=== PATIENT | male | born 1990 | race Hispanic/Latino ===

== ENCOUNTER 2018-08-13 15:54 | Emergency (ER) | payer SELFPAY ==
[2018-08-13] MEDS ORDERED: MORPHINE 4 MG/ML SYR ONE (16:51)
[2018-08-13] MEDS ORDERED: NA CHLORIDE 0.9% 1,000 ML ONE (16:51)
[2018-08-13] MEDS ORDERED: ONDANSETRON 4 MG/2 ML VIAL ONE (16:51)
[2018-08-13 17:01] LABS: Absolute Lymphocytes (CBC) 2.2 K/uL (0.7-4.9); Absolute Neutrophil 7.7 K/uL (1.8-8.0); Basophils % 0.3 % (0-1.3); Hematocrit 43.7 % (39.6-49.0); Lymphocytes % 20.3 % (15.3-44.8); MPV 9.3 fL (7.6-11.3); Monocytes % 9.2 % (3.3-12.3)
[2018-08-13 17:12] LABS: Protime INR 1.03
--- NOTE | 2018-08-13 17:29 | RAD REPORT ---
EXAM DESCRIPTION: CT - Head C Spine Cap Adolph Machado - 08/13/2018 5:11 pm CLINICAL HISTORY: Fall from ladder second story of the home, head, neck, chest and abdomen pain COMPARISON: None. TECHNIQUE: Axial [address] head images were obtained. Axial [address] cervical spine images were obtaine d with sagittal and coronal reconstruction images reviewed. During dynamic enhancement of 100mL non-i onic contrast, axial 5 mm images of the chest, abdomen and pelvis were obtained. All CT scans are performed using dose optimization technique as appropriate and may include automated exposure control or mA/KV adjustment according to patient size. FINDINGS: No epidural, subdural or subarachnoid hemorrhage identified. There are few punctate hyperd ensities believed to be within range of normal. Cortical contusion and shear injury are not suspected . No mass effect or edema. No sulcal effacement. No midline shift or abnormal fluid collection. Mas toid air cells and paranasal sinuses are clear. No skull fracture. No measurable scalp hematoma. CT cervical spine imaging shows normal height. Normal alignment of the vertebrae. No disc space narro wing. No paraspinal mass or hematoma seen. Central canal detail is inherently limited. Concerns for t raumatic disc herniation or traumatic cord injury can be further addressed with MR imaging. CT chest shows no pneumothorax, pulmonary contusion or pleural fluid collection. No mediastinal hemat анна and the aorta and pulmonary arteries are unremarkable. No chest will mass or abnormal axillary fi nding. No displaced rib fracture or other significant bony finding. No dislocation of either franklin l head. Superior aspect of each scapula and lateral aspect of each clavicle. CT abdomen and pelvis show no injury to solid abdominal viscera. Gallbladder and biliary tree are unr emarkable. No bowel injury or significant finding. No free air, free fluid or abnormal stranding. No urinary bladder abnormality. No compression fracture or acute bone finding identifiable. No muscle or subcutaneous fatty tissue ma ss or hematoma. No foreign body. IMPRESSION: No hemorrhage, edema or acute CT Head finding. No significant CT Cervical Spine finding. No significant CT Chest finding. No significant CT Abdomen and Pelvis finding.
[2018-08-13] MEDS ORDERED: KETOROLAC 30 MG/ML INJ ONE (17:58)
[2018-08-13 18:18] LABS: BUN Blood Urea Nitrogen 16 mg/dL (7-18); Bicarbonate 26 mmol/L (21-32); Glucose Level 107 mg/dL (74-106); Potassium 3.4 mmol/L (3.5-5.1); Sodium Level 140 mmol/L (136-145)
[2018-08-13 18:26] LABS: Urine Blood NEGATIVE (NEG); Urine Glucose NEGATIVE (NEG); Urine Protein NEGATIVE (NEG); Urine Specific Gravity 1.015 (1.005-1.030); Urine pH 6.5 (5.0-7.0)
--- NOTE | 2018-08-13 18:43 | ER ---
Nurse's Notes [facility] Name: Derrick Brody Age: 27 yrs Sex: Male : 1990 Arrival Date: 08/13/2018 Time: 15:57 Bed 8 Private MD: None, None Diagnosis: Fall on and from ladder;Pain in right shoulder-from fall;Pain in right elbow-from fall Presentation: 08/13 16:14 Presenting complaint: Patient states: I was coming off of the roof of a two story house la1 on to a ladder and the ladder slipped and I fell to the ground and landed on it. Pt reports upper and lower back pain, right arm pain, denies LOC. Transition of care: patient was not received from another setting of care. Onset of symptoms was August 13, 2018. Risk Assessment: Do you want to hurt yourself or someone else? Patient reports no desire to harm self or others. Initial Sepsis Screen: Does the patient meet any 2 criteria? No. Patient's initial sepsis screen is negative. Does the patient have a suspected source of infection? No. Patient's initial sepsis screen is negative. Care prior to arrival: None. 16:14 Method Of Arrival: Ambulatory la1 16:14 Acuity: TEDDY 2 la1 16:20 Mechanism of Injury: Fall from ladder. Trauma event details: Injury occurred in the [address], Injury occurred: work Injury occurred: August 13, 2018. Trauma Activation: Alert Physician: ED Physician; Name: ; Notified At: ; Arrived At: Physician: General Surgeon; Name: ; Notified At: ; Arrived At: Physician: Radiology; Name: ; Notified At: ; Arrived At: Physician: Respiratory; Name: ; Notified At: ; Arrived At: Physician: Lab; Name: ; Notified At: ; Arrived At: Historical: - Allergies: 16:16 No Known Allergies; la1 - Home Meds: 16:16 None [Active]; la1 - PMHx: 16:16 None; la1 - PSHx: 16:16 None; la1 - Immunization history:: Adult Immunizations up to date. - Social history:: Smoking status: Patient uses tobacco products, smokes one-half pack cigarettes per day. - Immunization history: Last tetanus immunization:. - Ebola Screening: : No symptoms or risks identified at this time. Screenin:00 Abuse screen: Denies threats or abuse. Nutritional screening: No deficits noted. ca1 Tuberculosis screening: No symptoms or risk factors identified. Fall Risk None identified. Primary Survey: 16:20 NO uncontrolled hemorrhage observed. A: The patient is alert. Airway: patent, No aa5 supplemental oxygen in use on arrival. Breathing/Chest: Respiratory pattern: regular, Respiratory effort: unlabored, Breath sounds: clear, bilaterally. Circulation: Skin color: pink. Disability Alert. Exposure/Environment: All clothing and personal items were removed. There is no evidence of uncontrolled external bleeding. A warming method has been applied: A warm blanket has been provided to the patient. 16:33 Reassessment Airway Airway Patent Breathing/Chest Respiratory pattern Regular aa5 Respiratory effort Spontaneous Unlabored Breath sounds Clear Chest inspection Symmetrical Circulation Color Chestnut Disability Alert. Assessment: 16:20 General: Appears uncomfortable, Behavior is calm, cooperative. Pain: Complains of pain aa5 in posterior chest, low back, right shoulder, and right elbow Pain currently is 10 out of 10 on a pain scale. Quality of pain is described as aching, sharp, Is continuous, Aggravated by repositioning, Noted to be resistant to movement. Neuro: Level of Consciousness is awake, alert, obeys commands, Oriented to person, place, time, situation, Pocket Operator are equal bilaterally Moves all extremities. Speech is normal, Facial symmetry appears normal, Pupils are PERRLA. EENT: No signs and/or symptoms were reported regarding the EENT system. Cardiovascular: Heart tones S1 S2 present Rhythm is regular. Respiratory: Airway is patent Respiratory effort is even, unlabored, Respiratory pattern is regular, symmetrical, Breath sounds are clear bilaterally. GI: Abdomen is round non-distended, Bowel sounds present X 4 quads. Abd is soft and non tender X 4 quads. Patient currently denies nausea, vomiting. : No signs and/or symptoms were reported regarding the genitourinary system. Derm: Skin is pink, warm \T\ dry. Musculoskeletal: Reports pain in right shoulder, right elbow, and back. 17:15 Reassessment: Patient appears in no apparent distress at this time. Patient and/or ca1 family updated on plan of care and expected duration. Pain level reassessed. Patient is alert, oriented x 3, equal unlabored respirations, skin warm/dry/pink. 17:59 Reassessment: X-ray at bedside. ca1 18:40 Reassessment: Sling applied to R arm. ca1 18:55 Reassessment: Patient appears in no apparent distress at this time. Patient is alert, ca1 oriented x 3, equal unlabored respirations, skin warm/dry/pink. Vital Signs: 16:16 BP 145 / 87; Pulse 84; Resp 16; Temp 97.8; Pulse Ox 98% on R/A; Weight 108.86 kg; la1 Height 6 ft. 2 in. (187.96 cm); 17:35 BP 146 / 97; Pulse 74; Resp 19; Pulse Ox 100% on R/A; ca1 18:55 BP 135 / 91; Pulse 87; Resp 17; Pulse Ox 100% on R/A; ca1 16:16 Body Mass Index 30.81 (108.86 kg, 187.96 cm) la1 Crystal Coma Score: 16:20 Eye Response: spontaneous(4). Verbal Response: oriented(5). Motor Response: obeys aa5 commands(6). Total: 15. 17:35 Eye Response: spontaneous(4). Verbal Response: oriented(5). Motor Response: obeys ca1 commands(6). Total: 15. 18:55 Eye Response: spontaneous(4). Verbal Response: oriented(5). Motor Response: obeys ca1 commands(6). Total: 15. Trauma Score (Adult): 16:20 Eye Response: spontaneous(1); Verbal Response: oriented(1); Motor Response: obeys aa5 commands(2); Systolic BP: > 89 mm Hg(4); Respiratory Rate: 10 to 29 per min(4); Crystal Score: 15; Trauma Score: 12 ED Course: 15:57 Patient arrived in ED. mr 15:57 None, None is Private Physician. mr 16:15 Triage completed. la1 16:16 Arm band placed on right wrist. la1 16:20 Juan Manuel Saucedo PA is PHCP. cp 16:20 Jaron Mosley MD is Attending Physician. cp 16:20 Patient has correct armband on for positive identification. Placed in gown. Bed in low aa5 position. Call light in reach. Side rails up X2. 16:20 Thermoregulation: warm blanket given to patient. aa5 16:32 Alisia Brooks, RN is Primary Nurse. aa5 16:35 Patient maintains SpO2 saturation greater than 95% on room air. aa5 16:35 Inserted saline lock: 20 gauge in left antecubital area, using aseptic technique. Blood aa5 collected. IV inserted by Jailene Bonilla RN. 17:11 CT Traumagram (Head C Spine CAP W Con) In Process Unspecified. EDMS 18:05 X-ray completed. Portable x-ray completed in exam room. Patient tolerated procedure la2 well. 18:07 XRAY Shoulder RIGHT 2 view In Process Unspecified. EDMS 18:07 XRAY Elbow RIGHT 3 view In Process Unspecified. EDMS 18:41 Abelino Raymundo MD is Referral Physician. cp 19:00 No provider procedures requiring assistance completed. IV discontinued, intact, ca1 bleeding controlled, No redness/swelling at site. Pressure dressing applied. Administered Medications: 16:40 Drug: NS 0.9% 1000 ml Route: IV; Rate: 1 bolus; Site: left antecubital; aa5 18:00 Follow up: IV Status: Completed infusion ca1 17:03 Not Given (Patient Refused): morphine 4 mg IVP once aa5 17:03 Not Given (Patient Refused): Zofran 4 mg IVP once; over 2 minutes aa5 17:51 Drug: TORadol 30 mg Route: IVP; Site: left antecubital; la1 18:41 Follow up: Response: No adverse reaction; Pain is decreased ca1 18:40 Drug: Potassium Effervescent Tablet 25 mEq Route: PO; ca1 18:50 Follow up: Response: Medication administered at discharge. ca1 Output: 18:30 Urine: 400ml (Voided); Total: 400ml. ca1 Outcome: 18:42 Discharge ordered by . cp 19:00 Discharged to home ambulatory, with family. ca1 19:00 Condition: stable 19:00 Discharge instructions given to patient, family, Instructed on discharge instructions, follow up and referral plans. medication usage, Demonstrated understanding of instructions, follow-up care, medications, Prescriptions given X 1. 19:00 Patient's length of stay in the Emergency Department was greater than 2 hours. waiting ca1 on xray results.Patient's length of stay extended due to 19:09 Patient left the ED. ca1 Signatures: Dispatcher [employer] Sadie Dominguez Audri, RN RN aa5 Galileo Mcdaniels RN RN la1 Juan Manuel Saucedo PA PA cp Ardoin, Leslie la2 Jailene Bonilla RN RN ca1 Corrections: (The following items were deleted from the chart) 17:04 16:40 NS 0.9% 1000 ml IV at 1 bolus in right antecubital aa5 aa5
--- NOTE | 2018-08-13 18:44 | EDPHYS ---
Physician Documentation [facility] Name: Derrick Brody Age: 27 yrs Sex: Male : 1990 Arrival Date: 08/13/2018 Time: 15:57 Bed 8 Private MD: None, None ED Physician Jaron Mosley HPI: 08/13 16:40 This 27 yrs old Male presents to ER via Ambulatory with complaints of Fall cp Injury. 16:40 Details of fall: The patient fell from a height, from a ladder, approximately 10 feet, cp and struck a concrete surface. Onset: The symptoms/episode began/occurred 2 hour(s) ago. Associated injuries: The patient sustained right shoulder and right elbow, painful injury. Severity of symptoms: in the emergency department the symptoms are unchanged, despite home interventions. Historical: - Allergies: 16:16 No Known Allergies; la1 - Home Meds: 16:16 None [Active]; la1 - PMHx: 16:16 None; la1 - PSHx: 16:16 None; la1 - Immunization history:: Adult Immunizations up to date. - Social history:: Smoking status: Patient uses tobacco products, smokes one-half pack cigarettes per day. - Immunization history: Last tetanus immunization:. - Ebola Screening: : No symptoms or risks identified at this time. ROS: 16:55 Constitutional: Negative for body aches, chills, fever, poor PO intake. cp 16:55 Eyes: Negative for injury, pain, redness, and discharge. cp 16:55 ENT: Negative for drainage from ear(s), ear pain, sore throat, difficulty swallowing, difficulty handling secretions. 16:55 Cardiovascular: Negative for chest pain, edema, palpitations. 16:55 Respiratory: Negative for cough, shortness of breath, wheezing. 16:55 Abdomen/GI: Negative for abdominal pain, nausea, vomiting, and diarrhea, anorexia, black/tarry stool, rectal bleeding. 16:55 Back: Positive for pain at rest, pain with movement, of the low back area and mid back area. 16:55 : Negative for urinary symptoms, hematuria. 16:55 MS/extremity: Positive for pain, tenderness, of the right shoulder and right elbow, Negative for deformity, paresthesias. 16:55 Skin: Negative for cellulitis, rash. 16:55 Neuro: Negative for altered mental status, seizure activity, weakness. 16:55 All other systems are negative. Exam: 17:00 Constitutional: The patient appears in no acute distress, alert, awake, cp non-diaphoretic, non-toxic, well developed, well nourished, uncomfortable. 17:00 Head/Face: Normocephalic, atraumatic. cp 17:00 Eyes: Periorbital structures: appear normal, Pupils: equal, round, and reactive to light and accomodation, Extraocular movements: intact throughout, Conjunctiva: normal, no exudate, no injection, Sclera: no appreciated abnormality, Lids and lashes: appear normal, bilaterally. 17:00 ENT: External ear(s): are unremarkable, Ear canal(s): are normal, clear, TM's: bulging, is not appreciated, bilaterally, dullness, bilaterally, erythema, is not appreciated, bilaterally, Nose: is normal, Mouth: Lips: moist, Oral mucosa: pink and intact, moist, Posterior pharynx: is normal, airway is patent, no erythema, no exudate, Voice: is normal. 17:00 Neck: C-spine: C-collar placed in ED, vertebral tenderness, that is mild, crepitus, is not appreciated. 17:00 Chest/axilla: Inspection: normal, Palpation: is normal, no crepitus, no tenderness. 17:00 Cardiovascular: Rate: normal, Rhythm: regular, Heart sounds: murmur, not appreciated, rub, not appreciated, gallop, not appreciated, Edema: is not appreciated, JVD: is not appreciated. 17:00 Respiratory: the patient does not display signs of respiratory distress, Respirations: normal, no use of accessory muscles, no retractions, no splinting, no tachypnea, labored breathing, is not present, Breath sounds: are clear throughout, no decreased breath sounds, no stridor, no wheezing. 17:00 Abdomen/GI: Inspection: abdomen appears normal, Bowel sounds: active, all quadrants, Palpation: soft, in all quadrants, mild abdominal tenderness, in the right upper quadrant and left upper quadrant, rebound tenderness, is not appreciated, voluntary guarding, is not appreciated, involuntary guarding, is not appreciated. 17:00 Back: pain, that is moderate, of the low back area and mid back area, ROM is painful, Straight leg raises: of both lower extremities does not illicit pain. 17:00 Musculoskeletal/extremity: Extremities: grossly normal except: noted in the right shoulder and right elbow: pain, tenderness, There is no evidence of decreased ROM, ROM: limited passive range of motion due to pain, in the right shoulder and right elbow, Perfusion: the extremity is normally perfused throughout, Sensation intact. 17:00 Skin: cellulitis, is not appreciated, no rash present. 17:00 Neuro: Orientation: to person, place \T\ time. Mentation: is normal, Cerebellar function: is grossly normal, Motor: moves all fours, strength is normal, Sensation: is normal. Vital Signs: 16:16 BP 145 / 87; Pulse 84; Resp 16; Temp 97.8; Pulse Ox 98% on R/A; Weight 108.86 kg; la1 Height 6 ft. 2 in. (187.96 cm); 17:35 BP 146 / 97; Pulse 74; Resp 19; Pulse Ox 100% on R/A; ca1 18:55 BP 135 / 91; Pulse 87; Resp 17; Pulse Ox 100% on R/A; ca1 16:16 Body Mass Index 30.81 (108.86 kg, 187.96 cm) la1 [place] Coma Score: 16:20 Eye Response: spontaneous(4). Verbal Response: oriented(5). Motor Response: obeys aa5 commands(6). Total: 15. 17:35 Eye Response: spontaneous(4). Verbal Response: oriented(5). Motor Response: obeys ca1 commands(6). Total: 15. 18:55 Eye Response: spontaneous(4). Verbal Response: oriented(5). Motor Response: obeys ca1 commands(6). Total: 15. Trauma Score (Adult): 16:20 Eye Response: spontaneous(1); Verbal Response: oriented(1); Motor Response: obeys aa5 commands(2); Systolic BP: > 89 mm Hg(4); Respiratory Rate: 10 to 29 per min(4); Crystal Score: 15; Trauma Score: 12 MDM: 16:20 Patient medically screened. 18:41 Data reviewed: vital signs, nurses notes, lab test result(s), radiologic studies, CT cp scan, plain films. 18:41 Test interpretation: by ED physician or midlevel provider: plain radiologic studies. cp Counseling: I had a detailed discussion with the patient and/or guardian regarding: the historical points, exam findings, and any diagnostic results supporting the discharge/admit diagnosis, lab results, radiology results, to return to the emergency department if symptoms worsen or persist or if there are any questions or concerns that arise at home. Response to treatment: the patient's symptoms have markedly improved after treatment, and as a result, I will discharge patient. ED course: VSS. Radiology studies negative for acute fracture. Will discharge to home for continued monitoring. 08/13 16:34 Order name: Basic Metabolic Panel; Complete Time: 18:36 cp 08/13 18:36 Interpretation: Normal except: K 3.4; GLUC 107; CA 8.4. cp 08/13 16:34 Order name: CBC with Diff; Complete Time: 17:45 cp 08/13 16:34 Order name: Creatinine for Radiology; Complete Time: 18:36 cp 08/13 16:34 Order name: Type And Screen; Complete Time: 18:36 cp 08/13 16:34 Order name: PT-INR; Complete Time: 17:45 cp 08/13 18:19 Order name: Urine Dipstick--Ancillary (enter results); Complete Time: 18:36 eb 08/13 16:34 Order name: CT Traumagram (Head C Spine CAP W Con); Complete Time: 17:45 cp 08/13 17:47 Order name: XRAY Shoulder RIGHT 2 view cp 08/13 17:47 Order name: XRAY Elbow RIGHT 3 view cp 08/13 16:34 Order name: Labs collected and sent; Complete Time: 16:42 cp 08/13 18:44 Order name: Sling; Complete Time: 19:02 cp Administered Medications: 16:40 Drug: NS 0.9% 1000 ml Route: IV; Rate: 1 bolus; Site: left antecubital; aa5 18:00 Follow up: IV Status: Completed infusion ca1 17:03 Not Given (Patient Refused): morphine 4 mg IVP once aa5 17:03 Not Given (Patient Refused): Zofran 4 mg IVP once; over 2 minutes aa5 17:51 Drug: TORadol 30 mg Route: IVP; Site: left antecubital; la1 18:41 Follow up: Response: No adverse reaction; Pain is decreased ca1 18:40 Drug: Potassium Effervescent Tablet 25 mEq Route: PO; ca1 18:50 Follow up: Response: Medication administered at discharge. ca1 Disposition: 08/13/18 18:42 Discharged to Home. Impression: Fall on and from ladder, Pain in right shoulder - from fall, Pain in right elbow - from fall. - Condition is Stable. - Discharge Instructions: Shoulder Pain, Elbow Contusion, Shoulder Range of Motion Exercises. - Prescriptions for Naprosyn 500 mg Oral Tablet - take 1 tablet by ORAL route 2 times per day take with food; 20 tablet. - Medication Reconciliation Form, Thank You Letter, Antibiotic Education, Prescription Opioid Use form. - Follow up: Abelino Raymundo MD; When: 2 - 3 days; Reason: right shoulder and right elbow pain continues. - Problem is new. - Symptoms have improved. Addendum: 08/16/2018 20:35 Co-signature as Attending Physician, Jaron Mosley MD Available for consultation at p s1 all times . Signatures: Dispatcher [employer] EDMS Alisia Brooks RN RN aa5 Galileo Mcdaniels RN RN la1 Juan Manuel Saucedo PA PA cp Jaron Mosley MD MD ps1 Jailene Bonilla RN RN ca1 Corrections: (The following items were deleted from the chart) 08/13 18:36 18:36 Normal except: K 3.4; GLUC 107. cp cp 19:09 18:42 08/13/2018 18:42 Discharged to Home. Impression: Fall on and from ladder; Pain in ca1 right shoulder - from fall; Pain in right elbow - from fall. Condition is Stable. Forms are Medication Reconciliation Form, Thank You Letter, Antibiotic Education, Prescription Opioid Use. Follow up: Abelino Raymundo; When: 2 - 3 days; Reason: right shoulder and right elbow pain continues. Problem is new. Symptoms have improved. cp
[2018-08-13] MEDS ORDERED: POTASSIUM 25 MEQ EFFERV TAB ONE (18:49)
--- NOTE | 2018-08-13 19:13 | RAD REPORT ---
EXAM DESCRIPTION: Shoulder Right 2 View - 08/13/2018 6:09 pm CLINICAL HISTORY: Fall, right shoulder trauma, shoulder pain COMPARISON: None. TECHNIQUE: Internal and external rotation views of the right shoulder were obtained. FINDINGS: There is no fracture or dislocation. AC joint is normal in appearance. Acromial humeral j oint space is normal. No scapula abnormality seen. Calcification or other suspicious soft tissue find ing. IMPRESSION: Negative two-view right shoulder examination.
--- NOTE | 2018-08-13 19:13 | RAD REPORT ---
EXAM DESCRIPTION: RAD - Elbow Right 3 View - 08/13/2018 6:08 pm CLINICAL HISTORY: Fall, trauma to elbow, elbow pain COMPARISON: None. FINDINGS: No fracture is identified and no elevated posterior fat pad. There is no dislocation or pe riosteal reaction noted. No foreign body seen. Minimal posterior contusion. No other significant find ing. IMPRESSION: Negative right elbow examination.
== END 2018-08-13 19:09 | disposition home or self-care (01) ==
LOC: ER 15:54
DX: M25.521 Pain in right elbow (principal); W11.XXXA Fall on and from ladder, initial encounter; Y93.9 Activity, unspecified; Y92.9 Unspecified place or not applicable; F17.210 Nicotine dependence, cigarettes, uncomplicated
CPT/HCPCS: 36415; 70450; 71260; 72125; 74177; 80048; 81003; 85025; 85610; 86850; 86900; 86901; 96361; 96374; 99284; J2405; J7030; Q9967

== ENCOUNTER 2019-02-03 22:13 | Emergency (ER) | payer SELFPAY ==
[2019-02-03] MEDS ORDERED: LIDOCAINE 1% MPF 5 ML VIAL ONE (22:59)
[2019-02-03] MEDS ORDERED: BUPIVACAINE 0.5% PF 10 ML VIAL ONE (22:59)
[2019-02-03] MEDS ORDERED: TETANUS & DIPHTHERIA TOX,ADULT 0.5 ML VIAL ONE (23:01)
--- NOTE | 2019-02-04 00:37 | ER ---
Nurse's Notes [facility] Name: Derrick Brody Age: 28 yrs Sex: Male : 1990 Arrival Date: 02/03/2019 Time: 22:18 Bed 19 Private MD: Diagnosis: Ingrowing nail Presentation: 02/03 22:22 Presenting complaint: Patient states: "I have a severely ingrown toe nail, I've tried aj1 to dig it out and its getting worse and its getting infected". Transition of care: patient was not received from another setting of care. Onset of symptoms was January 27, 2019. Risk Assessment: Do you want to hurt yourself or someone else? Patient reports no desire to harm self or others. Initial Sepsis Screen: Does the patient meet any 2 criteria? No. Patient's initial sepsis screen is negative. Does the patient have a suspected source of infection? No. Patient's initial sepsis screen is negative. Care prior to arrival: None. 22:22 Method Of Arrival: Ambulatory aj 22:22 Acuity: TEDDY 4 aj1 Triage Assessment: 22:23 General: Appears in no apparent distress. comfortable, Behavior is calm, cooperative, aj1 appropriate for age. Pain: Complains of pain in left foot Pain currently is 7 out of 10 on a pain scale. Neuro: Level of Consciousness is awake, alert, obeys commands, Oriented to person, place, time, situation. Cardiovascular: Patient's skin is warm and dry. Respiratory: Airway is patent Respiratory effort is even, unlabored, Respiratory pattern is regular, symmetrical. Historical: - Allergies: 22:23 No Known Allergies; aj1 - Home Meds: 22:23 None [Active]; aj1 - PMHx: 22:23 None; aj1 - Immunization history:: Flu vaccine is not up to date. - Social history:: Smoking status: Patient uses tobacco products, denies chronic smoking, but will smoke occasionally. - Ebola Screening: : Patient denies travel to an Ebola-affected area in the 21 days before illness onset. Screenin:31 Abuse screen: Denies threats or abuse. Nutritional screening: No deficits noted. bb Tuberculosis screening: No symptoms or risk factors identified. Fall Risk None identified. Assessment: 22:31 General: Appears in no apparent distress. uncomfortable, Behavior is calm, cooperative, bb Reports he has painful left big toe he has been trying to dig out his ingrown toenail for several days but it is getting worse. Pain: Complains of pain in Left first toenail. Neuro: Level of Consciousness is awake, alert, obeys commands, Oriented to person, place, time, situation. Cardiovascular: No deficits noted. Capillary refill < 3 seconds Patient's skin is warm and dry. Respiratory: Respiratory effort is even, unlabored, Respiratory pattern is regular. GI: No signs and/or symptoms were reported involving the gastrointestinal system. Derm: Skin is pink, warm \\T\\ dry. Musculoskeletal: Circulation, motion, and sensation intact. left big toenail is bloody looking Reports pain in left first toe and Left first toenail. 23:25 Reassessment: Patient appears in no apparent distress at this time. Patient is alert, rr5 oriented x 3, equal unlabored respirations, skin warm/dry/pink. 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 02/04 00:55 Reassessment: Patient appears in no apparent distress at this time. Patient is alert, rr5 oriented x 3, equal unlabored respirations, skin warm/dry/pink. discharge instruction given and explained without complaint made. Patient denies pain at this time. Patient states feeling better. Patient states symptoms have improved. Vital Signs: 02/03 22:23 BP 133 / 95; Pulse 73; Resp 18; Temp 98.1; Pulse Ox 99% on R/A; Height 6 ft. 2 in. aj1 (187.96 cm) (R); 23:00 BP 139 / 79; Pulse 73; Resp 19; Pulse Ox 100% ; rr5 02/04 00:00 BP 129 / 65; Pulse 69; Resp 16; Pulse Ox 98% on R/A; rr5 00:54 BP 131 / 70; Pulse 70; Resp 17; Temp 98.0; Pulse Ox 99% ; rr5 ED Course: 02/03 22:18 Patient arrived in ED. mr 22:23 Triage completed. aj1 22:23 Arm band placed on Patient placed in an exam room. aj1 22:28 Ralph Hatch NP is PHCP. pm1 22:28 Andrew Lewis MD is Attending Physician. pm1 22:31 Patient has correct armband on for positive identification. Bed in low position. Call carlo light in reach. Side rails up X 1. Pulse ox on. NIBP on. 22:55 Osiel Page, GEOVANNA is Primary Nurse. rr5 02/04 00:15 nail removal left big toe done aseptically by ralph THURSTON. rr5 00:45 Ortho shoe applied to left foot. rr5 00:56 Patient did not have IV access during this emergency room visit. 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 Exp: bb 10/01/2020. Lot #: [id number]. } Route: IM; Site: right deltoid; 23:50 Follow up: Response: No adverse reaction rr5 02/04 00:10 Drug: Lidocaine (1 %) 5 ml {Note: given by ralph THURSTON.} Volume: 5 ml; Route: rr5 Infiltration; 00:54 Follow up: Response: No adverse reaction rr5 00:10 Drug: Marcaine (0.5 %) 10 ml {Note: given by ralph THURSTON.} Volume: 10 ml; Route: rr5 Infiltration; 00:54 Follow up: Response: No adverse reaction rr5 00:40 Drug: Ancef 1 grams Route: IM; Site: right gluteus; rr5 00:58 Follow up: Response: No adverse reaction rr5 00:41 Drug: Bactrim (160 mg-800 mg (DS) 1 tablet Route: PO; rr5 00:58 Follow up: Response: No adverse reaction rr5 Outcome: 00:29 Discharge ordered by MD. pm1 00:56 Discharged to home ambulatory. rr5 00:56 Condition: stable 00:56 Discharge instructions given to patient, Instructed on discharge instructions, follow up and referral plans. medication usage, Demonstrated understanding of instructions, follow-up care, medications, Prescriptions given X 3. 00:58 Patient left the ED. rr5 Signatures: Naty Cason RN RN Gillian JulienSadie Meaghan Lai RN RN bb Marinas, Patrick, NP REMITTANCE CLERK pm1 Osiel Page RN RN rr5
--- NOTE | 2019-02-04 00:38 | EDPHYS ---
Physician Documentation [facility] Name: Derrick Brody Age: 28 yrs Sex: Male : 1990 Arrival Date: 02/03/2019 Time: 22:18 Bed 19 Private MD: ED Physician Andrew Lewis HPI: 02/04 00:24 This 28 yrs old Male presents to ER via Ambulatory with complaints of Ingrown pm1 left great toe nail. 00:24 The patient presents with pain. The complaints affect the Left first toenail. Context: pm1 The problem was sustained at home, resulted from ingrown nail and then he attempted to remove it himself over the past week, the patient can fully bear weight, the patient is able to ambulate. Onset: The symptoms/episode began/occurred 1 week(s) ago. Associated signs and symptoms: Pertinent negatives: calf tenderness, fever, numbness, tingling. Severity of symptoms: in the emergency department the symptoms are actually worse. The patient has experienced similar episodes in the past, multiple times. The patient has not recently seen a physician. Historical: - Allergies: 02/03 22:23 No Known Allergies; aj1 - Home Meds: 22:23 None [Active]; aj1 - PMHx: 22:23 None; aj1 - Immunization history:: Flu vaccine is not up to date. - Social history:: Smoking status: Patient uses tobacco products, denies chronic smoking, but will smoke occasionally. - Ebola Screening: : Patient denies travel to an Ebola-affected area in the 21 days before illness onset. ROS: 02/04 00:24 MS/extremity: Positive for pain, of the left first toe. pm1 Constitutional: Negative for fever, chills, and weight loss, Cardiovascular: Negative for chest pain, palpitations, and edema, Respiratory: Negative for shortness of breath, cough, wheezing, and pleuritic chest pain, Abdomen/GI: Negative for abdominal pain, nausea, vomiting, diarrhea, and constipation, Back: Negative for injury and pain. Neuro: Negative for headache, weakness, numbness, tingling, and seizure. Skin: Positive for ingrown left great toe nail. Exam: 00:24 Constitutional: This is a well developed, well nourished patient who is awake, alert, pm1 and in no acute distress. Head/Face: Normocephalic, atraumatic. Chest/axilla: Normal chest wall appearance and motion. Nontender with no deformity. No lesions are appreciated. Cardiovascular: Regular rate and rhythm with a normal S1 and S2. No gallops, murmurs, or rubs. Normal PMI, no JVD. No pulse deficits. Respiratory: Lungs have equal breath sounds bilaterally, clear to auscultation and percussion. No rales, rhonchi or wheezes noted. No increased work of breathing, no retractions or nasal flaring. Back: No spinal tenderness. No costovertebral tenderness. Full range of motion. 00:24 Skin: Appearance: normal except for affected area, abscess, not appreciated, cellulitis, is not appreciated, irregular shaped central portion of left great toe present with surrounding granulated tissue. 00:24 Neuro: Orientation: is normal, Motor: is normal, moves all fours. Vital Signs: 02/03 22:23 BP 133 / 95; Pulse 73; Resp 18; Temp 98.1; Pulse Ox 99% on R/A; Height 6 ft. 2 in. aj1 (187.96 cm) (R); 23:00 BP 139 / 79; Pulse 73; Resp 19; Pulse Ox 100% ; rr5 02/04 00:00 BP 129 / 65; Pulse 69; Resp 16; Pulse Ox 98% on R/A; rr5 00:54 BP 131 / 70; Pulse 70; Resp 17; Temp 98.0; Pulse Ox 99% ; rr5 Procedures: 00:24 Performed Left great toe nail removal. Patient attempted to remove by himself at home pm1 and the only remaining nail was an irregularly shaped 2 cm by 0.5 cm nail in the central portion of nailbed. Digital block with lidocaine and Marcaine 5 mL. Patient tolerated procedure well. Cuticle explored and no nail tissue remaining. . MDM: 02/03 22:28 Patient medically screened. pm1 02/04 00:28 Data reviewed: vital signs. Data interpreted: Pulse oximetry: on room air is 99 %. pm1 Interpretation: normal. 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 Exp: bb 10/01/2020. Lot #: [id number]. } Route: IM; Site: right deltoid; 23:50 Follow up: Response: No adverse reaction rr5 02/04 00:10 Drug: Lidocaine (1 %) 5 ml {Note: given by ralph SOFTWARE TOOLS ENGINEER.} Volume: 5 ml; Route: rr5 Infiltration; 00:54 Follow up: Response: No adverse reaction rr5 00:10 Drug: Marcaine (0.5 %) 10 ml {Note: given by ralph SOFTWARE TOOLS ENGINEER.} Volume: 10 ml; Route: rr5 Infiltration; 00:54 Follow up: Response: No adverse reaction rr5 00:40 Drug: Ancef 1 grams Route: IM; Site: right gluteus; rr5 00:58 Follow up: Response: No adverse reaction rr5 00:41 Drug: Bactrim (160 mg-800 mg (DS) 1 tablet Route: PO; rr5 00:58 Follow up: Response: No adverse reaction rr5 Disposition: 03:32 Co-signature as Attending Physician, Andrew Lewis MD. rn Disposition: 02/04/19 00:29 Discharged to Home. Impression: Ingrowing nail. - Condition is Stable. - Discharge Instructions: Ingrown Toenail, Fingernail or Toenail Removal, Adult. - Prescriptions for Keflex 500 mg Oral Capsule - take 1 capsule by ORAL route every 6 hours for 10 days; 40 capsule. Tylenol- Codeine #3 300-30 mg Oral Tablet - take 2 tablets by ORAL route every 6 hours As needed; 20 tablet. Bactrim DS 800- 160 mg Oral Tablet - take 1 tablet by ORAL route every 12 hours for 10 days; 20 tablet. - Medication Reconciliation Form, Thank You Letter, Antibiotic Education, Prescription Opioid Use form. - Follow up: Emergency Department; When: As needed; Reason: Worsening of condition. Follow up: Private Physician; When: 2 - 3 days; Reason: Recheck today's complaints, Continuance of care, Re-evaluation by your physician. - Problem is new. - Symptoms have improved. Signatures: Naty Cason RN RN aj1 Meaghan Lai RN RN bb Andrew Lewis MD MD rn Marinas, Patrick, SOFTWARE TOOLS ENGINEER SOFTWARE TOOLS ENGINEER pm1 Osiel Page RN RN rr5 Corrections: (The following items were deleted from the chart) 00:58 00:29 02/04/2019 00:29 Discharged to Home. Impression: Ingrowing nail. Condition is rr5 Stable. Forms are Medication Reconciliation Form, Thank You Letter, Antibiotic Education, Prescription Opioid Use. Follow up: Emergency Department; When: As needed; Reason: Worsening of condition. Follow up: Private Physician; When: 2 - 3 days; Reason: Recheck today's complaints, Continuance of care, Re-evaluation by your physician. Problem is new. Symptoms have improved. pm1
[2019-02-04] MEDS ORDERED: CEFAZOLIN SODIUM 1 GM/VIAL ONE (00:53)
[2019-02-04] MEDS ORDERED: SMZ./TMP. 800/160 MG TABLET ONE (00:53)
[2019-02-04] MEDS ORDERED: WATER FOR INJ,STERILE 10 ML ONE (00:54)
== END 2019-02-04 00:58 | disposition home or self-care (01) ==
LOC: ER 22:13
PROC: 0HBRXZZ Excision of Toe Nail, External Approach (ICD-10-PCS; principal; 2019-02-04)
DX: L60.0 Ingrowing nail (principal); Z23 Encounter for immunization; Z72.0 Tobacco use
CPT/HCPCS: 90471; 90714; 96372; 99284; J0690

== ENCOUNTER 2019-02-23 18:41 | Emergency (ER) | payer SELFPAY ==
--- OUTSIDE RECORDS SUMMARY | 2019-02-23 18:44 | XMS REPORT ---
:1990 Author Organization [employer] Care Team Providers Name Role Phone [place], Zandra Provider Role Unavailable Allergies, Adverse Reactions, Alerts Substance Reaction Event Type N.K.D.A. 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
--- OUTSIDE RECORDS SUMMARY | 2019-02-23 18:44 | XMS REPORT ---
:1990 Author Organization [employer] Care Team Providers Name Role Phone Rick Nunoh Provider Role Unavailable Allergies, Adverse Reactions, Alerts Substance Reaction Event Type N.K.D.A. Info Not Available Non Drug Allergy Problems Problem Type Condition Code Onset Dates Condition Status Assessment Pain in testicle N50.819 Active Medications No Known Medications Results No Known Results Summary Purpose [employer] Submission
[2019-02-23] MEDS ORDERED: ALBUTEROL 2.5 MG/3 ML NEB SOL ONE (19:27)
[2019-02-23] MEDS ORDERED: ONDANSETRON 4 MG/2 ML VIAL ONE (19:27)
[2019-02-23] MEDS ORDERED: IPRATROPIUM BROM 0.5MG/2.5ML ONE (19:27)
[2019-02-23] MEDS ORDERED: NA CHLORIDE 0.9% 1,000 ML ONE (19:27)
[2019-02-23 20:02] LABS: Basophils % 1.4 % (0-1.3); Hematocrit 43.3 % (39.6-49.0); Lymphocytes % 22.2 % (15.3-44.8); MPV 8.7 fL (7.6-11.3); RBC Red Blood Cell Count 4.95 M/uL (4.33-5.43)
--- NOTE | 2019-02-23 20:22 | RAD REPORT ---
EXAM DESCRIPTION: Jania Ojeda (2 Views)02/23/2019 7:53 pm CLINICAL HISTORY: sob COMPARISON: None FINDINGS: The lungs appear clear of acute infiltrate. The heart is normal size IMPRESSION: No acute abnormalities displayed
[2019-02-23 20:23] LABS: ALT/SGPT 75 U/L (12-78); AST/SGOT 31 U/L (15-37); Albumin 3.8 g/dL (3.4-5.0); Alkaline Phosphatase 61 U/L (45-117); BUN Blood Urea Nitrogen 17 mg/dL (7-18); Bicarbonate 23 mmol/L (21-32); Bilirubin Direct < 0.1 mg/dL (0-0.2); Bilirubin Total 0.3 mg/dL (0.2-1.0); Glucose Level 117 mg/dL (74-106); Lipase 83 U/L (73-393); Potassium 3.6 mmol/L (3.5-5.1); Protein, Total 7.9 g/dL (6.4-8.2); Sodium Level 142 mmol/L (136-145)
--- NOTE | 2019-02-23 21:38 | EDPHYS ---
Physician Documentation [facility] Name: Derrick Brody Age: 28 yrs Sex: Male : 1990 Arrival Date: 02/23/2019 Time: 18:43 Bed 24 Private MD: ED Physician Quoc Cardoza HPI: 02/23 19:54 This 28 yrs old Male presents to ER via Ambulatory with complaints of Trouble tw4 Talking, Breathing Difficulty, Vomiting Blood. 19:54 The patient has shortness of breath at rest. Onset: The symptoms/episode began/occurred tw4 3 month(s) ago, and became worse 1 week(s) ago. Duration: The symptoms are continuous, and are unchanged since they started. The patient's shortness of breath is aggravated by nothing. Associated signs and symptoms: Pertinent positives: nausea, Pertinent negatives: chest pain, non-productive cough, productive cough, visual changes, vomiting. Severity of symptoms: 3 month(s) ago, At their worst the symptoms were moderate in the emergency department the symptoms are unchanged. The patient has not experienced similar symptoms in the past. Historical: - Allergies: 18:50 No Known Allergies; la1 - PMHx: 18:50 Hypertension; la1 - Immunization history:: Adult Immunizations up to date. - Social history:: Smoking status: Patient/guardian denies using tobacco. - Ebola Screening: : No symptoms or risks identified at this time. ROS: 19:54 Constitutional: Negative for fever, chills, and weight loss, Eyes: Negative for injury, tw4 pain, redness, and discharge, Cardiovascular: Negative for chest pain, palpitations, and edema, Abdomen/GI: Negative for abdominal pain, nausea, vomiting, diarrhea, and constipation, Back: Negative for injury and pain, MS/Extremity: Negative for injury and deformity, Skin: Negative for injury, rash, and discoloration, Neuro: Negative for headache, weakness, numbness, tingling, and seizure. 19:54 Respiratory: Positive for shortness of breath, Negative for cough, dyspnea on exertion, hemoptysis, orthopnea, pleurisy. Exam: 19:54 Constitutional: This is a well developed, well nourished patient who is awake, alert, tw4 and in no acute distress. Head/Face: Normocephalic, atraumatic. Chest/axilla: Normal chest wall appearance and motion. Nontender with no deformity. No lesions are appreciated. Cardiovascular: Regular rate and rhythm with a normal S1 and S2. No gallops, murmurs, or rubs. Normal PMI, no JVD. No pulse deficits. Abdomen/GI: Soft, non-tender, with normal bowel sounds. No distension or tympany. No guarding or rebound. No evidence of tenderness throughout. Back: No spinal tenderness. No costovertebral tenderness. Full range of motion. Vital Signs: 18:51 Pulse 69; Resp 16; Temp 100.0(O); Pulse Ox 98% on R/A; Weight 140.61 kg; Height 6 ft. 2 la1 in. (187.96 cm); 18:53 BP 127 / 97; la1 20:47 BP 152 / 94; Pulse 75; Resp 18; Pulse Ox 100% on R/A; mg2 21:45 BP 148 / 87; Pulse 77; Resp 17 S; Pulse Ox 100% on R/A; cc3 18:51 Body Mass Index 39.80 (140.61 kg, 187.96 cm) la1 MDM: 19:09 Patient medically screened. 02/23 19:26 Order name: Basic Metabolic Panel; Complete Time: 21:33 02/23 21:34 Interpretation: Normal except: CL 111; GLUC 117. 02/23 19:26 Order name: CBC with Diff; Complete Time: 21:34 02/23 21:34 Interpretation: Normal except: BASO% 1.4. 02/23 19:26 Order name: Creatinine for Radiology; Complete Time: 21:35 02/23 19:26 Order name: Hepatic Function; Complete Time: 21:34 02/23 21:34 Interpretation: Normal except: GLOB 4.1; A/G 0.9. 02/23 19:26 Order name: Lipase; Complete Time: 21:35 02/23 21:35 Interpretation: Normal except: LIP 83. 02/23 19:28 Order name: Chest Pa And Lat (2 Views) XRAY; Complete Time: 21:35 02/23 21:35 Interpretation: No acute disease. 02/23 19:26 Order name: IV Saline Lock; Complete Time: 19:39 4 02/23 19:26 Order name: Labs collected and sent; Complete Time: 19:39 tw4 Administered Medications: 19:38 Drug: NS 0.9% 1000 ml Route: IV; Rate: 1 bolus; Site: right antecubital; mg2 20:30 Follow up: Response: No adverse reaction; IV Status: Completed infusion; IV Intake: mg2 1000ml 19:39 Drug: DuoNeb (3:1) (2.5 mg - 0.5 mg) 3 ml Route: Nebulizer; mg2 20:30 Follow up: Response: No adverse reaction; Marked relief of symptoms mg2 19:39 Drug: Zofran 4 mg Route: IVP; Site: right antecubital; mg2 20:30 Follow up: Response: No adverse reaction; Marked relief of symptoms mg2 Disposition: 02/23/19 21:36 Discharged to Home. Impression: Acute bronchospasm, Nausea. - Condition is Stable. - Discharge Instructions: Bronchospasm, Adult, How to Use an Inhaler, Nausea and Vomiting, Adult. - Prescriptions for Zofran 4 mg Oral Tablet - take 1 tablet by ORAL route every 12 hours As needed; 6 tablet. Albuterol Sulfate 90 mcg/actuation - inhale 1-2 puff by INHALATION route every 4-6 hours; 1 Inhaler. - Medication Reconciliation Form, Thank You Letter, Antibiotic Education, Prescription Opioid Use form. - Follow up: Private Physician; When: Upon discharge from the Emergency Department; Reason: If symptoms return, Recheck today's complaints, Continuance of care. - Problem is new. - Symptoms have improved. Signatures: Dispatcher [employer] EDIA Galileo Mcdaniels RN RN la1 Quoc Cardoza MD MD tw4 Raymon Vazquez RN RN mg2 Laura Kwon cc3 Corrections: (The following items were deleted from the chart) 22:06 21:36 02/23/2019 21:36 Discharged to Home. Impression: Acute bronchospasm; Nausea. cc3 Condition is Stable. Forms are Medication Reconciliation Form, Thank You Letter, Antibiotic Education, Prescription Opioid Use. Follow up: Private Physician; When: Upon discharge from the Emergency Department; Reason: If symptoms return, Recheck today's complaints, Continuance of care. Problem is new. Symptoms have improved. tw4
--- NOTE | 2019-02-23 21:38 | ER ---
Nurse's Notes [facility] Name: Derrick Brody Age: 28 yrs Sex: Male : 1990 Arrival Date: 02/23/2019 Time: 18:43 Bed 24 Private MD: Diagnosis: Acute bronchospasm;Nausea Presentation: 02/23 18:50 Presenting complaint: Patient states: I have been having ear pain for a while but now I la1 am having a bad sore throat for the last three months and it is causing me to vomit. Presenting complaint:. Transition of care: patient was not received from another setting of care. Onset of symptoms was February 23, 2019. Risk Assessment: Do you want to hurt yourself or someone else? Patient reports no desire to harm self or others. Initial Sepsis Screen: Does the patient meet any 2 criteria? No. Patient's initial sepsis screen is negative. Does the patient have a suspected source of infection? No. Patient's initial sepsis screen is negative. Care prior to arrival: None. 18:50 Method Of Arrival: Ambulatory la1 18:50 Acuity: TEDDY 3 la1 Historical: - Allergies: 18:50 No Known Allergies; la1 - PMHx: 18:50 Hypertension; la1 - Immunization history:: Adult Immunizations up to date. - Social history:: Smoking status: Patient/guardian denies using tobacco. - Ebola Screening: : No symptoms or risks identified at this time. Screenin:28 Abuse screen: Denies threats or abuse. Denies injuries from another. Nutritional mg2 screening: No deficits noted. Tuberculosis screening: No symptoms or risk factors identified. Fall Risk IV access (20 points). Assessment: 20:26 General: Appears in no apparent distress. comfortable, Behavior is calm, cooperative. mg2 Pain: Complains of pain in abdomen Pain does not radiate. Pain currently is 4 out of 10 on a pain scale. Quality of pain is described as aching, Pain began gradually, Is intermittent. Neuro: Level of Consciousness is awake, alert, obeys commands, Oriented to person, place, time, situation. Cardiovascular: Capillary refill < 3 seconds Patient's skin is warm and dry. Respiratory: Airway is patent Respiratory effort is even, unlabored. Respiratory: Reports shortness of breath. GI: Abdomen is round non-distended, Reports lower abdominal pain, upper abdominal pain. GI: Reports nausea. : No signs and/or symptoms were reported regarding the genitourinary system. EENT: No signs and/or symptoms were reported regarding the EENT system. Derm: Skin is intact, is healthy with good turgor, Skin is pink, warm \T\ dry. normal. Musculoskeletal: Circulation, motion, and sensation intact. Capillary refill < 3 seconds. 21:17 Reassessment: Patient appears in no apparent distress at this time. Patient and/or cc3 family updated on plan of care and expected duration. Pain level reassessed. Patient is alert, oriented x 3, equal unlabored respirations, skin warm/dry/pink. Patient denies pain at this time. Patient states feeling better. Patient states symptoms have improved. 22:00 Reassessment: Patient appears in no apparent distress at this time. Patient and/or cc3 family updated on plan of care and expected duration. Pain level reassessed. Patient is alert, oriented x 3, equal unlabored respirations, skin warm/dry/pink. Dr. Cardoza discharged the patient home with prescriptions given. IV cannula removed and patient left ER vitally stable and ambulatory with his relative. No valuables left in the patient's room. Patient denies pain at this time. Patient states feeling better. Patient states symptoms have improved. Vital Signs: 18:51 Pulse 69; Resp 16; Temp 100.0(O); Pulse Ox 98% on R/A; Weight 140.61 kg; Height 6 ft. 2 la1 in. (187.96 cm); 18:53 BP 127 / 97; la1 20:47 BP 152 / 94; Pulse 75; Resp 18; Pulse Ox 100% on R/A; mg2 21:45 BP 148 / 87; Pulse 77; Resp 17 S; Pulse Ox 100% on R/A; cc3 18:51 Body Mass Index 39.80 (140.61 kg, 187.96 cm) la1 ED Course: 18:43 Patient arrived in ED. rg4 18:51 Triage completed. la1 18:51 Arm band placed on right wrist. la1 19:09 Quoc Cardoza MD is Attending Physician. tw4 19:38 Raymon Vazquez, GEOVANNA is Primary Nurse. mg2 19:48 Chest Pa And Lat (2 Views) XRAY In Process Unspecified. EDMS 20:28 No provider procedures requiring assistance completed. Inserted saline lock: 20 gauge mg2 in right antecubital area, using aseptic technique. Blood collected. 20:29 Patient has correct armband on for positive identification. mg2 22:00 IV discontinued, intact, bleeding controlled, No redness/swelling at site. Pressure cc3 dressing applied. Administered Medications: 19:38 Drug: NS 0.9% 1000 ml Route: IV; Rate: 1 bolus; Site: right antecubital; mg2 20:30 Follow up: Response: No adverse reaction; IV Status: Completed infusion; IV Intake: mg2 1000ml 19:39 Drug: DuoNeb (3:1) (2.5 mg - 0.5 mg) 3 ml Route: Nebulizer; mg2 20:30 Follow up: Response: No adverse reaction; Marked relief of symptoms mg2 19:39 Drug: Zofran 4 mg Route: IVP; Site: right antecubital; mg2 20:30 Follow up: Response: No adverse reaction; Marked relief of symptoms mg2 Intake: 20:30 IV: 1000ml; Total: 1000ml. mg2 Outcome: 21:36 Discharge ordered by . tw4 22:00 Discharged to home ambulatory, with family. cc3 22:00 Condition: stable 22:00 Discharge instructions given to patient, family, Instructed on discharge instructions, follow up and referral plans. medication usage, Demonstrated understanding of instructions, follow-up care, medications, Prescriptions given X 2. 22:06 Patient left the ED. cc3 Signatures: Dispatcher [employer] EDMS Galileo Mcdaniels RN RN la1 Baylee Ca rg4 Quoc Cardoza MD MD 4 Raymon Vazquez RN RN mg2 Laura Kwon cc3 Corrections: (The following items were deleted from the chart) 20:55 20:47 Pulse 75bpm; Resp 18bpm; Pulse Ox 100% RA; mg2 mg2
== END 2019-02-23 22:06 | disposition home or self-care (01) ==
LOC: ER 18:41
DX: J98.01 Acute bronchospasm (principal); R11.0 Nausea; I10 Essential (primary) hypertension
CPT/HCPCS: 36415; 71046; 80048; 80076; 83690; 85025; 94640; 96361; 96374; 99284; J2405; J7030

== ENCOUNTER 2019-05-17 18:02 | Emergency (ER) | payer SELFPAY ==
--- NOTE | 2019-05-17 20:22 | ER ---
Nurse's Notes [facility] Name: Derrick Brody Age: 28 yrs Sex: Male : 1990 Arrival Date: 05/17/2019 Time: 18:13 Bed Waiting Private MD: Diagnosis: Presentation: 05/17 18:24 Presenting complaint: Patient states: cough and congestion x 3 weeks ago. Pt denies aa5 sore throat. Reports right ear pain. Transition of care: patient was not received from another setting of care. Onset of symptoms was 2018. Risk Assessment: Do you want to hurt yourself or someone else? Patient reports no desire to harm self or others. Initial Sepsis Screen: Does the patient meet any 2 criteria? No. Patient's initial sepsis screen is negative. Does the patient have a suspected source of infection? No. Patient's initial sepsis screen is negative. Care prior to arrival: None. 18:24 Acuity: TEDDY 4 aa5 18:24 Method Of Arrival: Ambulatory aa5 Historical: - Allergies: 18:25 No Known Allergies; aa5 - PMHx: 18:25 Hypertension; Asthma; COPD; aa5 - Immunization history:: Flu vaccine is not up to date. - Social history:: Smoking status: Patient/guardian denies using tobacco, Patient uses street drugs, marijuana. - Ebola Screening: : No symptoms or risks identified at this time. Vital Signs: 18:25 BP 128 / 73; Pulse 82; Resp 18 S; Temp 98.0(TE); Pulse Ox 98% on R/A; Weight 99.79 kg aa5 (R); Height 6 ft. 2 in. (187.96 cm) (R); Pain 3/10; 18:25 Body Mass Index 28.25 (99.79 kg, 187.96 cm) aa5 ED Course: 18:13 Patient arrived in ED. as 18:23 Arm band placed on. aa5 18:24 Triage completed. aa5 19:06 Juhi Clemente FNP-C [facility]. snw 19:06 Sammy Calvin MD is Attending Physician. snw 19:40 Patient's name was called from ER lobby. No response. fc 20:10 Patient's name was called from ER lobby. No response. aj1 20:20 Patient's name was called from ER lobby. No response. Unable to locate patient. Will aj1 disposition as left without being seen by a provider. Administered Medications: No medications were administered Outcome: 20:20 Patient left the ED. aj1 Signatures: Naty Cason RN RN aj1 Juhi Clemente, VOCATIONAL GUIDANCE COUNSELOR-C VOCATIONAL GUIDANCE COUNSELOR-Csnw Rizwana Gan RN RN fc Martinez, Amelia as Calderon, Audri, RN RN aa5 Corrections: (The following items were deleted from the chart) 18:26 18:25 BP 128 / 73; Pulse 82bpm; Resp 18bpm; Spontaneous; Pulse Ox 98% RA; Temp 98.0F aa5 Temporal; 99.79 kg Reported; Height 6 ft. 2 in. Reported; BMI: 28.2; aa5
[2019-05-17 20:26] VITALS: BP 128/73; TEMP 98; O2SAT 98
--- OUTSIDE RECORDS SUMMARY | 2019-05-22 02:24 | XMS REPORT ---
:1990 Author Organization [employer] Care Team Providers Name Role Phone [place], Zandra Provider Role Unavailable Allergies, Adverse Reactions, Alerts Substance Reaction Event Type N.K.D.A. 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
== END 2019-05-17 20:20 | disposition left against medical advice (07) ==
LOC: ER 18:02
DX: Z53.21 Procedure and treatment not carried out due to patient leaving prior to being seen by health care provider (principal)
CPT/HCPCS: 99281

== ENCOUNTER 2020-04-07 19:11 | Emergency (ER) | payer SELFPAY ==
--- OUTSIDE RECORDS SUMMARY | 2020-04-07 19:12 | XMS REPORT | Continuity of Care Document ---
:1990 Author Organization [facility] t Address [address] [place] [address] Care Team Providers Name Role Phone Unavailable Unavailable Unavailable Problems Condition Condition Condition Status Onset Resolution Last Treating Co mments Source Name Details Category Date Date Treatment Clinician Date Orchalgia Orchalgia Diagnosis Active C [facility] Allergies, Adverse Reactions, Alerts This patient has no known allergies or adverse reactions. Medications This patient has no known medications. Procedures This patient has no known procedures. Encounters Start End Encounter Admission Attending Care Care Encounter Source Date/Time Date/Time Type Type Clinicians Facility Department ID 2019-02-20 2019-02-20 Outpatient Leah Freeman [id number] [facility] [address] 11:00:00 11:00:00 t Specialty/U Carleen kes - Specialty rology [facility] a /Urology Clinic l Clinic Outpati ent Clinics 2019-02-20 2019-02-20 Outpatient Leah Freeman [id number] [facility] [address] 09:00:00 09:00:00 t [place] [facility] Results This patient has no known results.
[2020-04-07 20:47] LABS: Urine Blood NEGATIVE (NEG); Urine Glucose NEGATIVE (NEG); Urine Protein NEGATIVE (NEG); Urine Specific Gravity >1.030 (1.005-1.030); Urine pH 5.5 (5.0-7.0)
[2020-04-07 21:07] LABS: Absolute Lymphocytes (CBC) 2.6 K/uL (0.7-4.9); Basophils % 0.6 % (0-1.3); Hematocrit 41.9 % (39.6-49.0); Lymphocytes % 24.8 % (15.3-44.8); MPV 8.8 fL (7.6-11.3); RBC Red Blood Cell Count 4.87 M/uL (4.33-5.43)
[2020-04-07] MEDS ORDERED: MORPHINE 4 MG/ML SYR ONE (21:08)
[2020-04-07] MEDS ORDERED: NA CHLORIDE 0.9% 1,000 ML ONE (21:08)
[2020-04-07] MEDS ORDERED: ONDANSETRON 4 MG/2 ML VIAL ONE (21:08)
[2020-04-07 21:28] LABS: ALT/SGPT 63 U/L (12-78); AST/SGOT 20 U/L (15-37); Alkaline Phosphatase 88 U/L (45-117); BUN Blood Urea Nitrogen 14 mg/dL (7-18); Bicarbonate 25 mmol/L (21-32); Bilirubin Direct < 0.1 mg/dL (0-0.2); Bilirubin Total 0.2 mg/dL (0.2-1.0); Glucose Level 98 mg/dL (74-106); Lipase 54 U/L (73-393); Potassium 3.7 mmol/L (3.5-5.1); Protein, Total 8.1 g/dL (6.4-8.2); Sodium Level 143 mmol/L (136-145)
[2020-04-07 21:41] LABS: Calcium Oxalate Crystals- Ur MODERATE (NONE SEEN); Urine Bacteria NONE SEEN /HPF (NONE SEEN); Urine Culture Reflex Order NOT NEEDED; Urine Mucus HEAVY /HPF (NONE SEEN); Urine RBC NONE SEEN /HPF (NONE SEEN)
--- NOTE | 2020-04-07 23:06 | ER ---
Nurse's Notes [facility] Name: Derrick Brody Age: 29 yrs Sex: Male : 1990 Arrival Date: 04/07/2020 Time: 19:11 Bed 16 Private MD: Diagnosis: Right flank pain Presentation: 04/07 19:29 Chief complaint: Patient states: N/V from 1 am to 4 am this morning. Right lower back ll1 pain for 2 months, getting slowly worse. No fever, still has nausea. Coronavirus screen: Client denies travel out of the [place] in the last 14 days. fatigue, nausea, vomiting. Client presents with at least one sign or symptom that may indicate coronavirus-19. Standard/surgical mask placed on the client. Ebola Screen: Patient denies travel to an Ebola-affected area in the 21 days before illness onset. Initial Sepsis Screen: Does the patient meet any 2 criteria? No. Patient's initial sepsis screen is negative. Risk Assessment: Do you want to hurt yourself or someone else? Patient reports no desire to harm self or others. Onset of symptoms was February 03, 2020. 19:29 Method Of Arrival: Ambulatory ll1 19:29 Acuity: TEDDY 3 ll1 20:00 Initial Sepsis Screen: Does the patient have a suspected source of infection? No. wh Patient's initial sepsis screen is negative. Triage Assessment: 20:00 GI: Reports nausea. Historical: - Allergies: 19:32 No Known Allergies; ll1 - PMHx: 19:32 COPD; Asthma; Hypertension; ll1 - PSHx: 19:32 None; ll1 - Immunization history:: Flu vaccine is not up to date. - Social history:: Smoking status: Patient denies any tobacco usage or history of. Patient uses alcohol, only on a social basis. street drugs, marijuana, Patient/guardian denies using IV drugs. Screenin:00 Abuse screen: Denies threats or abuse. Denies injuries from another. Nutritional screening: No deficits noted. Tuberculosis screening: No symptoms or risk factors identified. Fall Risk None identified. Assessment: 19:45 General: Appears in no apparent distress. Behavior is calm, cooperative, appropriate wh for age. Pain: Complains of pain in right lower quadrant Pain radiates to right low back Pain currently is 7 out of 10 on a pain scale. Pain began 2 months ago. Neuro: Level of Consciousness is awake, alert, obeys commands, Oriented to person, place, time, situation, Appropriate for age. Cardiovascular: Heart tones S1 S2. Respiratory: Airway is patent Respiratory effort is even, unlabored, Respiratory pattern is regular, symmetrical, Breath sounds are clear bilaterally. GI: Abdomen is round non-distended, Bowel sounds present X 4 quads. Abd is soft and non tender X 4 quads. Reports nausea. : No signs and/or symptoms were reported regarding the genitourinary system. EENT: No signs and/or symptoms were reported regarding the EENT system. Derm: Skin is intact, is healthy with good turgor, Skin is pink, warm \T\ dry. normal. Musculoskeletal: Circulation, motion, and sensation intact. 21:30 Reassessment: Patient appears in no apparent distress at this time. No changes from previously documented assessment. Patient and/or family updated on plan of care and expected duration. Pain level reassessed. Patient is alert, oriented x 3, equal unlabored respirations, skin warm/dry/pink. Patient states feeling better. 23:00 Reassessment: Patient appears in no apparent distress at this time. Patient and/or family updated on plan of care and expected duration. Pain level reassessed. Patient is alert, oriented x 3, equal unlabored respirations, skin warm/dry/pink. Vital Signs: 19:29 BP 140 / 83; Pulse 89; Resp 18; Temp 98.8; Pulse Ox 98% ; Pain 10/10; ll1 21:00 BP 138 / 78; Pulse 84; Resp 18; Pulse Ox 99% on R/A; 22:00 BP 123 / 86; Pulse 70; Resp 18; Pulse Ox 100% on R/A; 23:30 BP 130 / 86; Pulse 70; Resp 18; Pulse Ox 98% on R/A; ED Course: 19:11 Patient arrived in ED. cl3 19:31 Triage completed. ll1 19:32 Osmar Moffett is Primary Nurse. 19:32 Arm band placed on Patient placed in an exam room, on a stretcher. ll1 20:00 Patient has correct armband on for positive identification. Bed in low position. Call light in reach. Side rails up X 1. Pulse ox on. NIBP on. 20:33 Jabier Schmitt MD is Attending Physician. pk 20:52 Initial lab(s) drawn, by me, sent to lab. Inserted saline lock: 20 gauge in left [facility] antecubital area, using aseptic technique. Blood collected. 20:52 Patient maintains SpO2 saturation greater than 95% on room air. [facility] 23:03 Villa Bellamy MD is Referral Physician. pk 23:44 No provider procedures requiring assistance completed. IV discontinued, intact, bleeding controlled, No redness/swelling at site. Administered Medications: 20:59 Drug: NS 0.9% 1000 ml Route: IV; Rate: 1000 ml; Site: left antecubital; 23:45 Follow up: Response: No adverse reaction; IV Status: Completed infusion 21:01 Drug: morphine 4 mg {Note: RASS 0.} Route: IVP; Site: left antecubital; 23:45 Follow up: Response: No adverse reaction; Pain is decreased; RASS: Alert and Calm (0) 21:03 Drug: Zofran (Ondansetron) 4 mg Route: IVP; Site: left antecubital; 23:44 Follow up: Response: No adverse reaction; Nausea is decreased Outcome: 23:04 Discharge ordered by . pk 23:44 Discharged to home ambulatory, with family. 23:44 Condition: stable 23:44 Discharge instructions given to patient, family, Instructed on discharge instructions, follow up and referral plans. no drinking with medication, no driving heavy equipment, medication usage, POC Demonstrated understanding of instructions, follow-up care, medications, POC Prescriptions given X 2. 23:45 Patient left the ED. Signatures: Jabier Schmitt MD MD [facility] Osmar Moffett Leonel Emanuel jp3 Walt Ervin3 Randa Ervin RN RN ll1 Corrections: (The following items were deleted from the chart) 21:36 19:45 GI: Abdomen is round non-distended, Bowel sounds present X 4 quads. Abd is soft wh and non tender X 4 quads.
--- NOTE | 2020-04-07 23:06 | EDPHYS ---
Physician Documentation [facility] Name: Derrick Brody Age: 29 yrs Sex: Male : 1990 Arrival Date: 04/07/2020 Time: 19:11 Bed 16 Private MD: ED Physician Jabier Schmitt HPI: 04/07 21:15 This 29 yrs old Male presents to ER via Ambulatory with complaints of Vomiting.pkl 21:15 The patient complains of pain in the right flank. The pain does not radiate. Onset: The pkl symptoms/episode began/occurred 2 month(s) ago. Associated signs and symptoms: Pertinent positives: nausea, vomiting, yesterday. Historical: - Allergies: 19:32 No Known Allergies; ll1 - PMHx: 19:32 COPD; Asthma; Hypertension; ll1 - PSHx: 19:32 None; ll1 - Immunization history:: Flu vaccine is not up to date. - Social history:: Smoking status: Patient denies any tobacco usage or history of. Patient uses alcohol, only on a social basis. street drugs, marijuana, Patient/guardian denies using IV drugs. ROS: 21:15 Eyes: Negative for injury, pain, redness, and discharge, ENT: Negative for injury, pkl pain, and discharge, Neck: Negative for injury, pain, and swelling, Cardiovascular: Negative for chest pain, palpitations, and edema, Respiratory: Negative for shortness of breath, cough, wheezing, and pleuritic chest pain. 21:15 Abdomen/GI: Positive for nausea, vomiting. 21:15 Back: Positive for flank pain, on the right. 21:15 : Negative for urinary symptoms. 21:15 MS/extremity: Negative for rash. 21:15 Skin: Negative for rash. 21:15 Neuro: Negative for altered mental status, loss of consciousness. Exam: 21:15 Head/Face: Normocephalic, atraumatic. Eyes: Pupils equal round and reactive to light, pkl extra-ocular motions intact. Lids and lashes normal. Conjunctiva and sclera are non-icteric and not injected. Cornea within normal limits. Periorbital areas with no swelling, redness, or edema. ENT: Nares patent. No nasal discharge, no septal abnormalities noted. Tympanic membranes are normal and external auditory canals are clear. Oropharynx with no redness, swelling, or masses, exudates, or evidence of obstruction, uvula midline. Mucous membranes moist. Neck: Trachea midline, no thyromegaly or masses palpated, and no cervical lymphadenopathy. Supple, full range of motion without nuchal rigidity, or vertebral point tenderness. No Meningismus. Chest/axilla: Normal chest wall appearance and motion. Nontender with no deformity. No lesions are appreciated. Cardiovascular: Regular rate and rhythm with a normal S1 and S2. No gallops, murmurs, or rubs. Normal PMI, no JVD. No pulse deficits. Respiratory: Lungs have equal breath sounds bilaterally, clear to auscultation and percussion. No rales, rhonchi or wheezes noted. No increased work of breathing, no retractions or nasal flaring. Abdomen/GI: Soft, non-tender, with normal bowel sounds. No distension or tympany. No guarding or rebound. No evidence of tenderness throughout. Back: No spinal tenderness. No costovertebral tenderness. Full range of motion. Skin: Warm, dry with normal turgor. Normal color with no rashes, no lesions, and no evidence of cellulitis. MS/ Extremity: Pulses equal, no cyanosis. Neurovascular intact. Full, normal range of motion. Neuro: Awake and alert, GCS 15, oriented to person, place, time, and situation. Cranial nerves II-XII grossly intact. Motor strength 5/5 in all extremities. Sensory grossly intact. Cerebellar exam normal. Normal gait. Vital Signs: 19:29 BP 140 / 83; Pulse 89; Resp 18; Temp 98.8; Pulse Ox 98% ; Pain 10/10; ll1 21:00 BP 138 / 78; Pulse 84; Resp 18; Pulse Ox 99% on R/A; wh 22:00 BP 123 / 86; Pulse 70; Resp 18; Pulse Ox 100% on R/A; wh 23:30 BP 130 / 86; Pulse 70; Resp 18; Pulse Ox 98% on R/A; wh MDM: 20:33 Patient medically screened. pkl 22:59 Data reviewed: vital signs, nurses notes, lab test result(s), radiologic studies, CT pkl scan. ED course: Patient feeling better. Discussed lab and CT scan results with patient. Advised to follow up with Urologist in 2 to 3 days. Patient understood instructions. 04/07 20:24 Order name: Urine Microscopic Only 04/07 20:40 Order name: Urine Dipstick--Ancillary (enter results) mw2 04/07 20:43 Order name: Basic Metabolic Panel pk 04/07 20:43 Order name: CBC with Diff pkl 04/07 20:43 Order name: Hepatic Function pkl 04/07 20:43 Order name: Lipase pk 04/07 20:44 Order name: Creatinine, Serum pk 04/07 20:47 Order name: Urine Dipstick-Ancillary; Complete Time: 21:18 EDAR 04/07 21:11 Order name: CBC with Automated Diff; Complete Time: 21:18 EDAR 04/07 21:28 Order name: Basic Metabolic Panel; Complete Time: 22:49 EDAR 04/07 21:28 Order name: Liver (Hepatic) Function; Complete Time: 22:49 EDAR 04/07 21:28 Order name: Lipase; Complete Time: 22:49 EDAR 04/07 21:41 Order name: Urine Microscopic Only; Complete Time: 22:49 EDAR 04/07 23:31 Order name: CREATININE WHOLE BLOOD; Complete Time: 01:22 EDAR 04/07 20:24 Order name: Urine Dipstick-Ancillary (obtain specimen); Complete Time: 20:31 04/07 20:43 Order name: IV Saline Lock; Complete Time: 21:04 [facility] 04/07 20:43 Order name: Labs collected and sent; Complete Time: 21:04 [facility] 04/07 20:44 Order name: CT Abd/Pelvis - IV Contrast Only pk Administered Medications: 20:59 Drug: NS 0.9% 1000 ml Route: IV; Rate: 1000 ml; Site: left antecubital; 23:45 Follow up: Response: No adverse reaction; IV Status: Completed infusion 21:01 Drug: morphine 4 mg {Note: RASS 0.} Route: IVP; Site: left antecubital; 23:45 Follow up: Response: No adverse reaction; Pain is decreased; RASS: Alert and Calm (0) 21:03 Drug: Zofran (Ondansetron) 4 mg Route: IVP; Site: left antecubital; 23:44 Follow up: Response: No adverse reaction; Nausea is decreased Disposition: 04/07/20 23:04 Discharged to Home. Impression: Right flank pain. - Condition is Stable. - Prescriptions for Ultram 50 mg Oral Tablet - take 1 tablet by ORAL route every 8 hours As needed; 105 tablet. Zofran 4 mg Oral Tablet - take 1 tablet by ORAL route every 12 hours As needed; 10 tablet. - Medication Reconciliation Form, Thank You Letter, Antibiotic Education, Prescription Opioid Use form. - Follow up: Villa Bellamy MD; When: 2 - 3 days; Reason: Re-evaluation by your physician. - Problem is new. - Symptoms have improved. Signatures: Dispatcher [employer] EDMS Jabier Schmitt MD MD pkl Osmar Moffett Lynsay RN RN ll1 Corrections: (The following items were deleted from the chart) 23:45 23:04 04/07/2020 23:04 Discharged to Home. Impression: Right flank pain. Condition is wh Stable. Forms are Medication Reconciliation Form, Thank You Letter, Antibiotic Education, Prescription Opioid Use. Follow up: Villa Bellamy; When: 2 - 3 days; Reason: Re-evaluation by your physician. Problem is new. Symptoms have improved. pkl
[2020-04-07 23:53] VITALS: TEMP 98.8
[2020-04-07 23:58] VITALS: BP 130/86; O2SAT 98
--- NOTE | 2020-04-08 09:42 | RAD REPORT ---
EXAM DESCRIPTION: CT - Abdomen Pelvis W Contrast - 04/08/2020 3:10 am CLINICAL HISTORY: 29-year-old male with abdominal pain. COMPARISON: None. TECHNIQUE: CT of the abdomen and pelvis was performed following intravenous administration of contra st. Oral contrast was not administered. Multiplanar reformatted images were provided. This exam was p erformed according to our departmental dose optimization program which includes use of automated expo sure control, adjustment of the mA and/or kV according to patient size and/or use of iterative recons truction technique. FINDINGS: Chest: Evaluation through the lung bases reveals no focal opacity, pleural effusion or pne umothorax. Heart size is within normal limits. No pericardial effusion. Abdomen and pelvis: The liver, gallbladder, pancreas, spleen, bilateral kidneys and bilateral adrenal glands are within normal limits. Nonspecific focus of hypoattenuation is identified within the dome of the RIGHT lobe liver, poorly visualized secondary to motion artifact and measuring approximately 4 mm, (series 401, image eight). The vessels are patent and normal in caliber. No abdominopelvic lymph nodes are noted to be pathologically enlarged by CT measurement criteria. The bowel is within normal limits without abnormal bowel wall thickness or bowel dilation. No free air. No free abdominopelvic fluid collections. The appendix is within normal limits. Thickened appearance of the bladder wall may be secondary to incomplete distention, however can be se en in the setting of infectious or inflammatory process. Please correlate with laboratory values. The osseous structures are within normal limits. IMPRESSION: 1. No specific acute intra-abdominal findings are noted to suggest etiology of the patie nt's abdominal pain. 2. Thickened appearance of the bladder wall may be secondary to incomplete distention, however can be seen in the setting of infectious or inflammatory process. Please correlate with laboratory values. Electronically signed by: Rita Shrestha MD 04/07/2020 10:17 PM CDT Due to temporary technical issues with the PACS/Fluency reporting system, reports are being signed by the in house radiologist without review as a courtesy to ensure prompt reporting. The interpreting r adiologist is fully responsible for the content of the report.
== END 2020-04-07 23:45 | disposition home or self-care (01) ==
LOC: ER 19:11
DX: R10.9 Unspecified abdominal pain (principal); I10 Essential (primary) hypertension
CPT/HCPCS: 36415; 74177; 80048; 80076; 81003; 81015; 82565; 83690; 85025; 96361; 96374; 96375; 99284; J2405; J7030; Q9967

== ENCOUNTER 2024-04-11 12:49 | Emergency (ER) | payer SELFPAY ==
--- OUTSIDE RECORDS SUMMARY | 2024-04-11 12:54 | XMS REPORT | Continuity of Care Document ---
Author Name Unknown Address [address] [facility] [place] [address] [facility] Address [address] [facility] [address] [place] [address] Care Team Providers Care Special Order Jeweler Name Role Phone Andrea Nuno Attending Clinician KUSUM Zuniga Attending Clinician Unavailab KUSUM Durán Admitting Clinician Unavailab le Payers Payer Name Policy Type Policy Number Effective Date Expirati on Date Source DCB COMPET[employer]Y AMISH [id number] 2023 00:00:00 Problems Condition Name Condition Details Condition Category Status Onset Date Resolution Date Last Treatment Date Treating Clinician Comments Source Kidney stone Kidney stone Problem Active [facility] Social History Social Habit Start Date Stop Date Quantity Comments Source History of Tobacco Use Former Smoker [facility] Sex Assigned At [facility] Smoking Status Start Date Stop Date Source Former Smoker 2020-04-11 00:00:00 2020-04-11 00:00:00 [facility] Medications Ordered Medication Name Filled Medication Name Start Date Stop Date Current Medication? Ordering Clinician Indication Dosage Frequency Signature (SIG) Comments Components Source Cefdinir 300 MG Cefdinir 300 MG 2019-07 00:00: 00 04-18 00:00 :00 No BID Cefdinir 300 MG [facility] Vital Signs Vital Name Observation Time Observation Value Comments S ource height 2020-04-11 08:30:00 74 [in_i] Commo n [facility] weight 2020-04-11 08:30:00 315 [lb_av] Comm on [facility] temperature 2020-04-11 08:30:00 96.8 [degF] Com mon [facility] bmi 2020-04-11 08:30:00 40.44 kg/m2 Comm on [facility] oximetry 2020-04-11 08:30:00 95 % Commo n [facility] blood pressure systolic 2020-04-11 08:30:00 147 mm[Hg] [facility] blood pressure diastolic 2020-04-11 08:30:00 90 mm[Hg] [facility] Encounters Start Date/Time End Date/Time Encounter Type Admission Type Attending [facility] Care Department Encounter ID Source 2021-08-06 11:50:54 Outpatient Rick Nunoh [facility] ST[facility]C [id number] [facility] 2021-08-06 11:49:32 Outpatient Andrea Nuno STLML[facility] STLMLC [id number] [facility] 2024-04-10 09:31:49 2024-04-10 09:31:49 Outpatient SFA SFA [id number] Chris Cochran Carlitos 2023-12-15 11:20:00 2024-04-04 10:53:00 Outpatient KUSUM CA [facility] [id number] [facility] 2020-04-11 00:00:00 2020-04-11 00:00:00 OFFICE VISIT EST PT LEVEL 3 STLMLC STLMLC [id number] [facility] 2019-02-20 11:00:00 2019-02-20 11:00:00 [facility] [id number] [facility] 2019-02-20 09:00:00 2019-02-20 09:00:00 [facility] [id number] [facility]
--- NOTE | 2024-04-11 14:07 | RAD REPORT ---
EXAMINATION: ONE VIEW CHEST XR CLINICAL INDICATION: Male, 33 years old.,CHEST PAIN TECHNIQUE: Frontal chest projection is submitted. Examination is limited by patient positioning and t echnique. COMPARISON: 02/23/2019. FINDINGS: The lungs are well inflated and clear. No pneumothorax or sizable effusion. The heart is normal in s ize. IMPRESSION: No acute intrathoracic abnormalities.
--- NOTE | 2024-04-11 14:15 | RAD REPORT ---
EXAM: Head Brain Wo Cont HISTORY: SLURRED SPEECH COMPARISON: 08/13/2018 TECHNIQUE: Multiple contiguous axial images were obtained for a CT of the brain without contrast. Sag ittal and coronal reformats were performed. One or more of the following dose reduction techniques were used: Automated exposure control, adjus tment of the mA and kV according to patient size, and iterative reconstruction. Unless otherwise specified, incidental findings do not require dedicated imaging follow-up. FINDINGS: No evidence of hydrocephalus, intracranial hemorrhage, or extra-axial fluid collection. The brain is normal in morphology. The calvarium is intact. The visualized paranasal sinuses and mastoid air cells are essentially clear . IMPRESSION: No evidence of acute intracranial abnormality.
[2024-04-11 14:40] LABS: Absolute Eosinophils 0.1 K/uL (0-0.5); Absolute Lymphocytes (CBC) 1.7 K/uL (0.7-4.9); Absolute Neutrophil 4.8 K/uL (1.8-8.0); Basophils % 0.4 % (0-1.3); Eosinophils % 0.8 % (0-4.4); Hematocrit 43.1 % (39.6-49.0); Hemoglobin 14.7 g/dL (13.6-17.9); MCH 30.1 pg (27.0-35.0); MCHC 34.1 g/dL (32.0-36.0); MCV 88.2 fL (80-100); MPV 8.3 fL (7.6-11.3); Monocytes % 13.1 % (3.3-12.3); Neutrophils % 63.7 % (41.7-73.7); Platelets 226 thou/uL (152-406); RBC Red Blood Cell Count 4.88 M/uL (4.33-5.43); Red Cell Distribution Width 12.4 % (12.1-15.2)
[2024-04-11 14:47] LABS: PT Prothrombin Time 12.4 SECONDS (9.4-12.5); Protime INR 1.11
[2024-04-11 15:04] LABS: Albumin 4.8 g/dL (3.4-5.0); Albumin/Globulin Ratio 1.3 (1.1-1.8); Anion Gap 5.7 mEq/L (5.0-15.0); Bilirubin Direct 0.2 mg/dL (0-0.2); Bilirubin Indirect, Calculated 0.3 mg/dL (0.2-0.8); Bilirubin Total 0.5 mg/dL (0.2-1.0); Globulin 3.7 g/dL (2.3-3.5); Magnesium 2.3 mg/dL (1.6-2.4); Potassium 3.7 mEq/L (3.5-5.1); Protein, Total 8.5 g/dL (6.4-8.2); Troponin High Sensitivity 3.9 pg/mL (<58.9)
[2024-04-11] MEDS ORDERED: LORazepam 2 MG/ML VIAL ONE (15:10)
[2024-04-11] MEDS ORDERED: NA CHLORIDE 0.9% 1,000 ML ONE (15:10)
[2024-04-11 16:44] LABS: Specific Gravity 1.018 (1.005-1.030); Sqamous Epithelial None Seen /HPF (None Seen); Urine Bacteria None Seen /HPF (<20); Urine Bilirubin NEGATIVE (Negative); Urine Blood Negative (Negative); Urine Clarity Extremely Turbid (Clear); Urine Color Light-Orange (Yellow); Urine Culture Reflex Order NOT NEEDED; Urine Glucose NEGATIVE (Negative); Urine Ketones NEGATIVE (Negative); Urine Microscopic Reflex YN ORDER UMIC; Urine Mucus 1+ /HPF (None Seen); Urine Nitrite NEGATIVE (Negative); Urine Protein TRACE (Negative); Urine RBC <5 /HPF (None Seen); Urine Urobilinogen Normal (Normal); Urine WBC <5 /HPF (<5)
[2024-04-11 16:46] LABS: Barbiturates NEGATIVE (NEGATIVE); Benzodiazepines NEGATIVE (NEGATIVE); Cocaine NEGATIVE (NEGATIVE); METHAMPHETAM NEGATIVE (NEGATIVE); Methadone NEGATIVE (NEGATIVE); Opiates NEGATIVE (NEGATIVE); Phencyclidine NEGATIVE (NEGATIVE); THC Cannibis NEGATIVE (NEGATIVE)
--- NOTE | 2024-04-11 17:19 | RAD REPORT ---
EXAMINATION: MRI BRAIN WITHOUT CONTRAST CLINICAL INDICATION: Male, 33 years old.[facility] MAIN N SLURRED SPEECH Bed Name: 16 TECHNIQUE: Multiplanar multisequence MR images of the brain were obtained without intravenous contras t. Unless otherwise specified, incidental findings do not require dedicated imaging follow-up. COMPARISON: Head CT of earlier the same day FINDINGS: INTRACRANIAL: Midline structures are unremarkable. Diffusion-weighted images show no acute or early subacute infarction. No abnormal brain parenchymal signal. The ventricles are normal in size and morphology. No augmented susceptibility signal abnormality. There is no mass effect or midline shift. No abnormal extraaxial fluid collection. VASCULATURE: Normal signal voids in the larger intracranial arteries and dural venous sinuses. SINUSES: The paranasal sinuses and mastoid air cells are predominantly clear. BONE: The marrow signal pattern is within normal limits. IMPRESSION: No significant intracranial abnormalities.
--- NOTE | 2024-04-11 17:32 | ER ---
Nurse's Notes [facility] Name: Derrick Brody Age: 33 yrs Sex: Male : 1990 Arrival Date: 04/11/2024 Time: 12:49 Bed 16 Private MD: Diagnosis: Tremor, unspecified;Slurred speech;Patient's other noncompliance with medication regimen Presentation: 04/11 13:04 Chief complaint: Patient states: was released from detention on Wednesday , has not had his iw normal meds since then and he has been shaky, stuttering, drooling since then. He was started on buspirone 5 mg yesterday, pt states she took 8 pills over the course of the night. Coronavirus screen: At this time, the client does not indicate any symptoms associated with coronavirus-19. Risk Assessment: Do you want to hurt yourself or someone else? Patient reports no desire to harm self or others. 13:04 Method Of Arrival: Ambulatory iw 13:04 Acuity: TEDDY 3 iw 15:01 Ebola Screen: No symptoms or risks identified at this time. Initial Sepsis Screen: Does kc6 the patient meet any 2 criteria? No. Patient's initial sepsis screen is negative. Does the patient have a suspected source of infection? No. Patient's initial sepsis screen is negative. Onset of symptoms was April 08, 2024. Historical: - Allergies: 13:09 No Known Allergies; iw - Home Meds: 13:09 buspirone 5 mg oral tablet daily [Active]; iw - PMHx: 13:09 Asthma; Hypertension; COPD; iw - Immunization history:: Adult Immunizations up to date. - Infectious Disease History:: Denies. - Social history:: Smoking status: . Screenin:59 [facility] ED Fall Risk Assessment (Adult) History of falling in the last 3 months, kc6 including since admission No falls in past 3 months (0 pts) Confusion or Disorientation No (0 pts) Intoxicated or Sedated No (0 pts) Impaired Gait No (0 pts) Mobility Assist Device Used No (0 pt) Altered Elimination No (0 pt) Score/Fall Risk Level 0 - 2 = Low Risk Oriented to surroundings. Abuse screen: Denies threats or abuse. Denies injuries from another. Nutritional screening: No deficits noted. Tuberculosis screening: No symptoms or risk factors identified. Assessment: 14:59 General: Appears in no apparent distress. comfortable, well groomed, well developed, kc6 Behavior is calm, cooperative, appropriate for age, Reports feeling ill for > 3 days. Pain: Complains of pain in chest. Neuro: Level of Consciousness is awake, alert, obeys commands, Oriented to person, place, time, situation, Appropriate for age Reports blurred vision headache. Cardiovascular: Reports chest pain, Heart tones S1 S2 present Capillary refill < 3 seconds Rhythm is sinus rhythm. Respiratory: Airway is patent Trachea midline Respiratory effort is even, unlabored, Respiratory pattern is regular, symmetrical. GI: No signs and/or symptoms were reported involving the gastrointestinal system. : Reports inability to void, Denies burning with urination, cramping. EENT: Reports blurred vision. Derm: No signs and/or symptoms reported regarding the dermatologic system. Skin is intact, is healthy with good turgor, Skin is pink, warm \T\ dry. Musculoskeletal: No signs and/or symptoms reported regarding the musculoskeletal system. Circulation, motion, and sensation intact. Capillary refill < 3 seconds, Range of motion: intact in all extremities. 16:06 Reassessment: Patient appears in no apparent distress at this time. No changes from kc6 previously documented assessment. Patient and/or family updated on plan of care and expected duration. Pain level reassessed. Patient is alert, oriented x 3, equal unlabored respirations, skin warm/dry/pink. 17:10 Reassessment: Patient appears in no apparent distress at this time. No changes from kc6 previously documented assessment. Patient and/or family updated on plan of care and expected duration. Pain level reassessed. Patient is alert, oriented x 3, equal unlabored respirations, skin warm/dry/pink. Vital Signs: 13:09 BP 133 / 89; Pulse 84; Resp 16; Temp 98.1; Pulse Ox 99% on R/A; Weight 78.93 kg; Height iw 6 ft. 2 in. ; Pain 5/10; 15:01 BP 136 / 102; Pulse 66; Resp 16 S; Pulse Ox 100% on R/A; kc6 16:06 BP 134 / 96; Pulse 69; Resp 16 S; Pulse Ox 100% on R/A; kc6 13:09 Body Mass Index 22.34 (78.93 kg, 187.96 cm) iw 13:09 Pain Scale: Adult iw ED Course: 12:55 Patient arrived in ED. mg5 13:06 Triage completed. iw 13:14 Juan Manuel Saucedo PA is PHCP. cp 13:14 Juan Manuel Landa MD is Attending Physician. cp 13:58 CT Head Brain wo Cont In Process Unspecified. EDMS 14:04 XRAY Chest (1 view) In Process Unspecified. EDMS 14:31 Initial lab(s) drawn, by me, sent to lab. Inserted saline lock: 20 gauge in right iw antecubital area, using aseptic technique. Blood collected. Flushed with 10 mL NS. 14:38 Jenny Zhao, RN is Primary Nurse. kc6 14:58 Patient maintains SpO2 saturation greater than 95% on room air. kc6 14:58 Patient has correct armband on for positive identification. Bed in low position. Call kc6 light in reach. Side rails up X2. Adult w/ patient. Pulse ox on. NIBP on. Door closed. Noise minimized. Lights dimmed. Warm blanket given. Pillow given. 14:59 Arm band placed on. kc6 16:01 MRI - Brain Wo Cont In Process Unspecified. EDMS 17:55 No provider procedures requiring assistance completed. IV discontinued, intact, kc6 bleeding controlled, No redness/swelling at site. Pressure dressing applied. Administered Medications: 15:16 Drug: NS 0.9% IV 1000 ml IV at 1 bolus Per protocol; 1000 mL bolus Route: IV; Rate: 1 kc6 bolus; Site: right antecubital; 16:07 Follow up: Response: No adverse reaction; IV Status: Completed infusion; IV Intake: kc6 1000ml 15:42 Drug: Ativan IVP 1 mg IVP once Route: IVP; Site: right antecubital; kc6 16:07 Follow up: Response: No adverse reaction; Anxiety decreased; RASS: Alert and Calm (0) kc6 Medication: 17:55 VIS not applicable for this client. kc6 Intake: 16:07 IV: 1000ml; Total: 1000ml. kc6 Outcome: 17:32 Discharge ordered by . cp 17:55 Discharged to home ambulatory, with family, kc6 17:55 Condition: good 17:55 Discharge instructions given to patient, family, Instructed on discharge instructions, follow up and referral plans. no drinking with medication, no driving heavy equipment, medication usage, Demonstrated understanding of instructions, follow-up care, medications, Prescriptions given X 1, 17:55 Patient left the ED. kc6 Signatures: Dispatcher [employer] EDTracy Nguyen RN Juan Manuel Evans PA PA cp Campbell, Kaitlyn, RN RN kc6 [place] [id number]
--- NOTE | 2024-04-11 17:33 | EDPHYS ---
Physician Documentation [facility] Name: Derrick Brody Age: 33 yrs Sex: Male : 1990 Arrival Date: 04/11/2024 Time: 12:49 Bed 16 Private MD: ED Physician Juan Manuel Landa HPI: 04/11 13:50 This 33 yrs old Male presents to ER via Ambulatory with complaints of Foaming cp at the mouth, Trouble Talking, High Blood Pressure. 13:50 The patient's problem is reported as drooling, slurred speech, tremor. cp 13:50 Onset: The symptoms/episode began/occurred for past several days. Patient's baseline: cp Neuro: alert and fully oriented, Motor: no deficits, Ambulation: walks without assistance, Speech: normal. Patient reports recent release from assisted. Prescribed htn, psych medications that he has been off since release last Wednesday. Has medications Montelukast and Buspirone with him but reports he does not know names of other prescribed medications he was taking before release. Historical: - Allergies: 13:09 No Known Allergies; iw - Home Meds: 13:09 buspirone 5 mg oral tablet daily [Active]; iw - PMHx: 13:09 Asthma; Hypertension; COPD; iw - Immunization history:: Adult Immunizations up to date. - Infectious Disease History:: Denies. - Social history:: Smoking status: . ROS: 13:55 Constitutional: Negative for body aches, chills, fever, poor PO intake, cp 13:55 Eyes: Negative for injury, pain, redness, and discharge, cp 13:55 ENT: Negative for drainage from ear(s), ear pain, sore throat, 13:55 Cardiovascular: Negative for chest pain, 13:55 Respiratory: Negative for cough, shortness of breath, wheezing, 13:55 Abdomen/GI: Negative for abdominal pain, nausea, vomiting, and diarrhea, 13:55 Neuro: Positive for speech changes, tremor, Negative for headache, 13:55 Psych: Negative for auditory hallucinations, visual hallucinations, homicidal ideation, suicide gesture, suicidal ideation, 13:55 All other systems are negative, Exam: 14:00 Constitutional: The patient appears in no acute distress, alert, awake, cp non-diaphoretic, non-toxic, well developed, well nourished, 14:00 Head/Face: Normocephalic, atraumatic. cp 14:00 Eyes: Periorbital structures: appear normal, Pupils: equal, round, and reactive to light and accomodation, Extraocular movements: intact throughout, Conjunctiva: normal, no exudate, no injection, Sclera: no appreciated abnormality, Lids and lashes: appear normal, bilaterally, 14:00 ENT: External ear(s): are unremarkable, Nose: is normal, Mouth: Lips: moist, Oral mucosa: moist, Posterior pharynx: Airway: no evidence of obstruction, patent, 14:00 Neck: ROM/movement: is normal, is supple, without pain, no range of motions limitations, 14:00 Chest/axilla: Inspection: normal, 14:00 Cardiovascular: Rate: normal, Rhythm: regular, 14:00 Respiratory: the patient does not display signs of respiratory distress, Respirations: normal, no use of accessory muscles, no retractions, labored breathing, is not present, Breath sounds: are clear throughout, no decreased breath sounds, no stridor, no wheezing, 14:00 Abdomen/GI: Inspection: abdomen appears normal, Palpation: abdomen is soft and non-tender, in all quadrants, 14:00 Neuro: Orientation: to person, place \T\ time. Mentation: able to follow commands, slow to respond, Motor: moves all fours, no focal deficits, Sensation: no obvious gross deficits, Abnormal movements: resting tremor, is located in the right hand and left hand, 14:58 ECG was reviewed by the Attending Physician. cp Vital Signs: 13:09 BP 133 / 89; Pulse 84; Resp 16; Temp 98.1; Pulse Ox 99% on R/A; Weight 78.93 kg; Height iw 6 ft. 2 in. ; Pain 5/10; 15:01 BP 136 / 102; Pulse 66; Resp 16 S; Pulse Ox 100% on R/A; kc6 16:06 BP 134 / 96; Pulse 69; Resp 16 S; Pulse Ox 100% on R/A; kc6 13:09 Body Mass Index 22.34 (78.93 kg, 187.96 cm) iw 13:09 Pain Scale: Adult iw MDM: 13:14 Patient medically screened. cp 17:31 Data reviewed: vital signs, nurses notes, lab test result(s), EKG, radiologic studies, cp CT scan, MRI, plain films, and as a result, I will discharge patient. 17:31 Differential diagnosis: CVA, TIA, metabolic disorder, drug effects. Consideration of cp Admission/Observation Escalation of care including admission/observation considered. I considered the following discharge prescriptions or medication management in the emergency department Medications were administered in the Emergency Department. See MAR. Independent interpretation of the following test(s) in the Emergency Department EKG: See my EKG interpretation above. Care significantly affected by the following chronic conditions: Hypertension. Counseling: I had a detailed discussion with the patient and/or guardian regarding the historical points, exam findings, and any diagnostic results supporting the discharge/admit diagnosis, lab results, radiology results, the need for outpatient follow up, a family practitioner, a psychiatrist, to return to the emergency department if symptoms worsen or persist or if there are any questions or concerns that arise at home. Response to treatment: the patient's symptoms have markedly improved after treatment, and as a result, I will discharge patient. 04/11 13:47 Order name: Basic Metabolic Panel; Complete Time: 15:40 cp 04/11 15:40 Interpretation: Normal except: CO2 33. cp 04/11 13:47 Order name: CBC with Diff; Complete Time: 15:02 cp 04/11 13:47 Order name: LFT's; Complete Time: 15:40 cp 04/11 13:47 Order name: Magnesium; Complete Time: 15:40 cp 04/11 13:47 Order name: PT-INR; Complete Time: 15:02 cp 04/11 13:47 Order name: Troponin HS; Complete Time: 15:40 cp 04/11 14:03 Order name: UDS; Complete Time: 16:51 cp 04/11 14:03 Order name: ETOH Level; Complete Time: 15:02 cp 04/11 14:03 Order name: Urinalysis w/ reflexes; Complete Time: 16:51 cp 04/11 16:51 Interpretation: Normal except: [facility] Extremely Turbid; UPH 8.0; UPROT TRACE; JOSEMANUEL Cx 4+. cp 04/11 13:47 Order name: CT Head Brain wo Cont; Complete Time: 14:35 cp 04/11 14:35 Interpretation: Report reviewed. cp 04/11 13:47 Order name: XRAY Chest (1 view); Complete Time: 14:35 cp 04/11 15:03 Order name: MRI - Brain Wo Cont; Complete Time: 17:20 cp 04/11 17:20 Interpretation: Report reviewed. cp 04/11 13:47 Order name: Cardiac monitoring; Complete Time: 14:58 cp 04/11 13:47 Order name: EKG - Nurse/Tech; Complete Time: 14:58 cp 04/11 13:47 Order name: IV Saline Lock; Complete Time: 14:58 cp 04/11 13:47 Order name: Labs collected and sent; Complete Time: 14:58 cp 04/11 13:47 Order name: O2 Per Protocol; Complete Time: 14:58 cp 04/11 13:47 Order name: O2 Sat Monitoring; Complete Time: 14:58 cp EC:58 Rate is 69 beats/min. Rhythm is regular. AR interval is normal. QRS interval is normal. cp QT interval is normal. T waves are Inverted in leads III, aVR. Interpreted by me. Reviewed by me. Administered Medications: 15:16 Drug: NS 0.9% IV 1000 ml IV at 1 bolus Per protocol; 1000 mL bolus Route: IV; Rate: 1 kc6 bolus; Site: right antecubital; 16:07 Follow up: Response: No adverse reaction; IV Status: Completed infusion; IV Intake: kc6 1000ml 15:42 Drug: Ativan IVP 1 mg IVP once Route: IVP; Site: right antecubital; kc6 16:07 Follow up: Response: No adverse reaction; Anxiety decreased; RASS: Alert and Calm (0) kc6 Disposition: 04/12 13:56 Chart complete. cp Disposition Summary: 04/11/24 17:32 Discharge Ordered Notes: Location: Home cp Problem: new cp Symptoms: have improved cp Condition: Stable cp Diagnosis - Tremor, unspecified cp - Slurred speech cp - Patient's other noncompliance with medication regimen cp Followup: cp - With: Private Physician - When: Tomorrow - Reason: as scheduled Discharge Instructions: - Discharge Summary Sheet cp - Tremor cp Forms: - Medication Reconciliation Form cp - Antibiotic Education cp - Prescription Opioid Use cp - Patient Portal Instructions cp - Leadership Thank You Letter cp Prescriptions: - Vistaril 25 mg Oral capsule - take 2 capsule ORAL route 3-4 times daily; 30 capsule; Refills: 0, Product cp Selection Permitted Signatures: Dispatcher [employer] Tracy Healy, RN RN Juan Manuel Jackson PA PA cp Campbell, Kaitlyn RN RN kc6
[2024-04-11 18:58] VITALS: TEMP 98.1
[2024-04-11 19:01] VITALS: O2SAT 100
[2024-04-11 19:02] VITALS: BP 134/96
--- NOTE | 2024-04-12 12:57 | EKG ---
Test Date: 2024-04-11 Test Time: 14:53:26 Fixed Route Operator: CYRUS MEASUREMENT RESULTS: Intervals: Rate: 69 [place]: 160 QRSD: 96 QT: 398 QTc: 426 [place]: P: 54 [place]: 160 QRS: -14 T: 16 INTERPRETIVE STATEMENTS: Normal sinus rhythm Normal ECG No previous ECG available for comparison Electronically Signed On 04-12-24 12:54:30 CDT by Ken Velez
== END 2024-04-11 17:55 | disposition home or self-care (01) ==
LOC: ER 12:49
DX: R25.1 Tremor, unspecified (principal); R47.81 Slurred speech; Z91.148 Patient's other noncompliance with medication regimen for other reason
CPT/HCPCS: 36415; 70450; 70551; 71045; 80048; 80076; 80307; 81001; 82077; 83735; 84484; 85025; 85610; 93005; 96361; 96374; 99284; J7030

== ENCOUNTER 2024-10-14 17:34 | Emergency (ER) | payer SELFPAY ==
--- OUTSIDE RECORDS SUMMARY | 2024-10-14 17:39 | XMS REPORT | Continuity of Care Document ---
Author Name Unknown Address [address] [facility] [place] [address] Organization [facility] Address [address] [facility] [place] [address] Care Team Providers Care Application Programmer Analyst Name Role Phone Federicau Marilee HAUSER Primary Care Physician Andrea Nuno Attending Clinician KUSUM Zuniga Attending Clinician Unavailab KUSUM Durán Admitting Clinician Unavailab le Payers Payer Name Policy Type Policy Number Effective Date Expirati on Date Source [facility] [employer] [facility]RI[employer] [id number] 2023 00:00:00 Problems Condition Name Condition Details Condition Category Status Onset Date Resolution Date Last Treatment Date Treating Clinician Comments Source Kidney stone Kidney stone Problem Active [facility] Social History Social Habit Start Date Stop Date Quantity Comments Source History of Tobacco Use Former Smoker [facility] Sex Assigned At [facility] Smoking Status Start Date Stop Date Source Former Smoker 2020-04-11 00:00:00 2020-04-11 00:00:00 [facility] Medications Ordered Medication Name Filled Medication Name Start Date Stop Date Current Medication? Ordering Clinician Indication Dosage Frequency Signature (SIG) Comments Components Source benztropine 1 mg tablet 2023-07 0-03 00:00: 00 Yes 1mg Christom Urbina Abilify 2 mg tablet 2023-07 0-03 00:00: 00 Yes 1mg Chris Urbina gabapentin 100 mg capsule 2023-07 0-03 00:00: 00 Yes 1mg Chris rUbina buspirone 5 mg tablet 0 9-30 00:00: 00 Yes mg Chris Urbina losartan 100 mg tablet 0 9-30 00:00: 00 Yes 1mg Chris Urbina montelukast 10 mg tablet 0 -30 00:00: 00 Yes 1mg Chris Urbina albuterol sulfate 2.5 mg/3 mL (0.083 %) solution for nebulizatio n 04-10 00:00: 00 Yes 1/3 mL (0.083 %) Chris Urbina albuterol sulfate 0.63 mg/3 mL solution for nebulizatio n 04-10 00:00: 00 Yes 1mg/3 mL Chris Urbina Dose Unknown - 00:00: 00 Yes Chris Urbina Dose Unknown 0 - 00:00: 00 Yes Chris Urbina benzonatate 100 mg capsule -15 00:00: 00 Yes 12mg Chris Urbina Dose Unknown 15 00:00: 00 Yes Chris Urbina pantoprazol e 40 mg tablet,mickie yed release -14 00:00: 00 Yes 1mg Chris Urbina Xopenex HFA 45 mcg/actuati on aerosol inhaler 0 - 00:00: 00 Yes 12mcg/a ctuatio n Chris Urbina montelukast 10 mg tablet - 00:00: 00 Yes 1mg Chris Urbina losartan 100 mg tablet - 00:00: 00 Yes 1mg Chris Urbina lansoprazol e 30 mg delayed release,dis integrating tablet - 00:00: 00 Yes 1mg Chris Urbina esomeprazol e magnesium 40 mg capsule,del ayed release - 00:00: 00 Yes 1mg Chris Urbina albuterol sulfate 2.5 mg/3 mL (0.083 %) solution for nebulizatio n - 00:00: 00 Yes 3/3 mL (0.083 %) Chris Urbina Xopenex HFA 45 mcg/actuati on aerosol inhaler 10-16 00:00: 00 Yes 12mcg/a ctuatio n Chris Urbina montelukast 10 mg tablet 10-16 00:00: 00 Yes 1mg Chris Urbina losartan 100 mg tablet 10-16 00:00: 00 Yes 1mg Chris Urbina lansoprazol e 30 mg delayed release,dis integrating tablet 10-16 00:00: 00 Yes 1mg Chris Urbina albuterol sulfate 2.5 mg/3 mL (0.083 %) solution for nebulizatio n 10-16 00:00: 00 Yes 3/3 mL (0.083 %) Chris Urbina losartan 100 mg tablet 2020-07 00:00: 00 Yes 1mg Chris Urbina montelukast 10 mg tablet 2020-07 00:00: 00 Yes 1mg Chris Urbina pantoprazol e 40 mg tablet,mickie yed release 2020-07 00:00: 00 Yes 1mg Chris Urbina prednisone 20 mg tablet 2020-07 00:00: 00 Yes 1mg Chris Urbina azithromyci n 250 mg tablet 2020-07 00:00: 00 Yes mg Chris Urbina benzonatate 100 mg capsule 2020-07 00:00: 00 Yes 12mg Chris Urbina Bromfed DM 2 mg-30 mg-10 mg/5 mL oral syrup 2020-07 00:00: 00 Yes 5mg/5 mL Chris Urbina Dose Unknown 2020-07 00:00: 00 Yes Chris Urbina albuterol sulfate 2.5 mg/3 mL (0.083 %) solution for nebulizatio n 01-02 00:00: 00 Yes 3/3 mL (0.083 %) Chris Urbina losartan 100 mg tablet 01-02 00:00: 00 Yes 1mg Chris Urbina montelukast 10 mg tablet 01-02 00:00: 00 Yes 1mg Chris Urbina omeprazole 40 mg capsule,del ayed release 6-24 00:00: 00 Yes 1mg Chris Urbina Xopenex HFA 45 mcg/actuati on aerosol inhaler - 00:00: 00 Yes 12mcg/a ctuatio n Chris Urbina pantoprazol e 40 mg tablet,mickie yed release 3 00:00: 00 Yes 1mg Chris Urbina montelukast 10 mg tablet 10-09 00:00: 00 Yes 1mg Chris Urbina losartan 100 mg tablet 10-09 00:00: 00 Yes 1mg Chris Urbina omeprazole 40 mg capsule,del ayed release 10-09 00:00: 00 Yes 1mg Chris Urbina albuterol sulfate 2.5 mg/3 mL (0.083 %) solution for nebulizatio n 10-09 00:00: 00 Yes 3/3 mL (0.083 %) Chris Urbina Xopenex HFA 45 mcg/actuati on aerosol inhaler 2 00:00: 00 Yes 12mcg/a ctuatio n Chris Urbina pantoprazol e 40 mg tablet,mickie yed release 2 00:00: 00 Yes 1mg Chris Urbina montelukast 10 mg tablet 2 00:00: 00 Yes 1mg Chris Urbina lisinopril 20 mg-hydrochl orothiazide 12.5 mg tablet 208 00:00: 00 Yes 1mg Chris Urbina ofloxacin 0.3 % ear drops 2019-07 00:00: 00 Yes 3% Chris Urbina lisinopril 20 mg-hydrochl orothiazide 12.5 mg tablet 2019-07 2- 00:00: 00 Yes 1mg Chris Urbina azithromyci n 250 mg tablet 2019-07 2 00:00: 00 Yes mg Chris Urbina Xopenex HFA 45 mcg/actuati on aerosol inhaler 2019-07 1- 00:00: 00 Yes 12mcg/a ctuatio n Chris Urbina montelukast 10 mg tablet 2019-07 00:00: 00 Yes 1mg Chris Urbina pantoprazol e 40 mg tablet,mickie yed release 2019-07 00:00: 00 Yes 1mg Chris Urbina azithromyci n 250 mg tablet 2019-07 00:00: 00 Yes mg Chris Urbina cefdinir 300 mg capsule 2019-07 00:00: 00 Yes 1mg Chris Urbina albuterol sulfate 2.5 mg/3 mL (0.083 %) solution for nebulizatio n 2019-07 00:00: 00 Yes 3/3 mL (0.083 %) Chris Urbina neomycin-po lymyxin-hyd rocort 3.5 mg-10,000 unit/mL-1 % ear drops,susp 2019-07 00:00: 00 Yes 3mg/mL- unit/mL -% Chris Urbina ProAir HFA 90 mcg/actuati on aerosol inhaler 2019-07 00:00: 00 Yes 1mcg/ac tuation Chris Urbina montelukast 10 mg tablet 2019-07 00:00: 00 Yes 1mg Chris Urbina ciprofloxac in 500 mg tablet 2019-07 00:00: 00 Yes 1mg Chris Urbina prednisone 20 mg tablet 2019-07 00:00: 00 Yes 1mg Chris Urbina pantoprazol e 40 mg tablet,mickie yed release 2019-07 00:00: 00 Yes 1mg Chris Urbina buspirone 7.5 mg tablet 2019-07 00:00: 00 Yes 1mg Chris Urbina Cefdinir 300 MG Cefdinir 300 MG 2019-07 00:00: 00 04-18 00:00 :00 No BID Cefdinir 300 MG Common [facility] Vital Signs Vital Name Observation Time Observation Value Comments Jagruti shah height 2020-04-11 08:30:00 74 [in_i] Commo n [facility] weight 2020-04-11 08:30:00 315 [lb_av] Comm on [facility] temperature 2020-04-11 08:30:00 96.8 [degF] Com mon [facility] bmi 2020-04-11 08:30:00 40.44 kg/m2 Comm on [facility] oximetry 2020-04-11 08:30:00 95 % Commo n [facility] blood pressure systolic 2020-04-11 08:30:00 147 mm[Hg] Common [facility] blood pressure diastolic 2020-04-11 08:30:00 90 mm[Hg] [facility] BP Systolic 2024-04-10 09:47:00 137 mm[Hg] Step hen [facility] BP Diastolic 2024-04-10 09:47:00 90 mm[Hg] Monico phen [facility] Weight Measured 2024-04-10 09:47:00 173.70 pounds Chris F [facility] Height Measured 2024-04-10 09:47:00 74.00 inches Chris F [facility] Body Temperature 2024-04-10 09:47:00 98.60 degrees Chris F [facility] Heart Rate 2024-04-10 09:47:00 71.00 /min Aisha en F [facility] Respiratory Rate 2024-04-10 09:47:00 Chris F [facility] BP Systolic 2022-01-21 11:38:00 138 mm[Hg] Step hen [facility] BP Diastolic 2022-01-21 11:38:00 92 mm[Hg] Monico phen [facility] Weight Measured 2022-01-21 11:38:00 284.20 pounds Chris F Carlitos Height Measured 2022-01-21 11:38:00 74.00 inches Chris F Carlitos Body Temperature 2022-01-21 11:38:00 98.40 degrees Chris F Carlitos Heart Rate 2022-01-21 11:38:00 79.00 /min Aisha en F [facility] Respiratory Rate 2022-01-21 11:38:00 16.00 /min Chris F [facility] BP Systolic 2021-10-16 16:10:00 133 mm[Hg] Step hen F [facility] BP Diastolic 2021-10-16 16:10:00 79 mm[Hg] Monico phen [facility] Weight Measured 2021-10-16 16:10:00 314.00 pounds Chris F Carlitos Height Measured 2021-10-16 16:10:00 74.00 inches Chris F Carlitos Body Temperature 2021-10-16 16:10:00 98.30 degrees Chris F Carlitos Heart Rate 2021-10-16 16:10:00 83.00 /min Aisha en F [facility] Respiratory Rate 2021-10-16 16:10:00 Chris F [facility] BP Systolic 2021-05-28 17:00:00 139 mm[Hg] Step hen F [facility] BP Diastolic 2021-05-28 17:00:00 87 mm[Hg] Monico phen [facility] Weight Measured 2021-05-28 17:00:00 317.00 pounds Chris F Carlitos Height Measured 2021-05-28 17:00:00 74.00 inches Chris F Carlitos Body Temperature 2021-05-28 17:00:00 98.40 degrees Chris F Carlitos Heart Rate 2021-05-28 17:00:00 79.00 /min Aisha en F [facility] Respiratory Rate 2021-05-28 17:00:00 16.00 /min Chris F Carlitos BP Systolic 2021-01-02 16:58:00 142 mm[Hg] Step hen F [facility] BP Diastolic 2021-01-02 16:58:00 90 mm[Hg] Monico phen [facility] Weight Measured 2021-01-02 16:58:00 327.80 pounds Chris F Carlitos Height Measured 2021-01-02 16:58:00 74.00 inches Chris F Carlitos Body Temperature 2021-01-02 16:58:00 98.80 degrees Chris F Carlitos Heart Rate 2021-01-02 16:58:00 71.00 /min Aisha en F [facility] Respiratory Rate 2021-01-02 16:58:00 17.00 /min Chris F Carlitos BP Systolic 2020-10-09 14:48:00 136 mm[Hg] Step hen F [facility] BP Diastolic 2020-10-09 14:48:00 82 mm[Hg] Moinco phen F [facility] Weight Measured 2020-10-09 14:48:00 332.60 pounds Chris F Carlitos Height Measured 2020-10-09 14:48:00 74.00 inches Chris F Carlitos Body Temperature 2020-10-09 14:48:00 98.40 degrees Chris F Carlitos Heart Rate 2020-10-09 14:48:00 95.00 /min Aisha en F [facility] Respiratory Rate 2020-10-09 14:48:00 17.00 /min Chris F Carlitos BP Systolic 2020-06-11 17:50:00 149 mm[Hg] Step hen F [facility] BP Diastolic 2020-06-11 17:50:00 102 mm[Hg] Monico phen [facility] Weight Measured 2020-06-11 17:50:00 326.80 pounds Chris F Carlitos Height Measured 2020-06-11 17:50:00 74.00 inches Chris F Carlitos Body Temperature 2020-06-11 17:50:00 98.60 degrees Chris F Carlitos Heart Rate 2020-06-11 17:50:00 84.00 /min Aisha en F [facility] Respiratory Rate 2020-06-11 17:50:00 18.00 /min Chris F Carlitos BP Systolic 2020-05-14 10:20:00 159 mm[Hg] Step hen F [facility] BP Diastolic 2020-05-14 10:20:00 105 mm[Hg] Monico phen [facility] Weight Measured 2020-05-14 10:20:00 319.60 pounds Chris F Carlitos Height Measured 2020-05-14 10:20:00 74.00 inches Chris F Carlitos Body Temperature 2020-05-14 10:20:00 98.80 degrees Chris F Carlitos Heart Rate 2020-05-14 10:20:00 83.00 /min Aisha en F [facility] Respiratory Rate 2020-05-14 10:20:00 16.00 /min Chris F Carlitos BP Systolic 2020-04-30 15:02:00 132 mm[Hg] Step hen F [facility] BP Diastolic 2020-04-30 15:02:00 85 mm[Hg] Monico phen [facility] Weight Measured 2020-04-30 15:02:00 325.80 pounds Chris F Carlitos Height Measured 2020-04-30 15:02:00 74.00 inches Chris F Carlitos Body Temperature 2020-04-30 15:02:00 99.00 degrees Chris F Carlitos Heart Rate 2020-04-30 15:02:00 71.00 /min Aisha en F Carlitos Respiratory Rate 2020-04-30 15:02:00 17.00 /min Chris F Carlitos Encounters Start Date/Time End Date/Time Encounter Type Admission Type Attending [facility] Care Department Encounter ID Source 2021-08-06 11:50:54 Outpatient Andrea Nuno [facility] [id number] [facility] 2021-08-06 11:49:32 [id number] 2024-10-09 10:13:11 2024-10-09 10:13:11 Outpatient SFA [facility] [id number] Chris Urbina 2024-09-04 13:11:09 2024-09-04 13:11:09 Outpatient SFA SFA [id number] Chris Urbina 2024-08-03 14:07:48 2024-08-03 14:07:48 Outpatient SFA SFA [id number] Chris Urbina 2024-08-01 12:59:16 2024-08-01 12:59:16 Outpatient SFA SFA [id number] Chris Urbina 2024-07-01 12:17:37 2024-07-01 12:17:37 Outpatient SFA SFA [id number] Chris Urbina 2024-06-01 10:28:34 2024-06-01 10:28:34 Outpatient SFA SFA [id number] Chris Urbina 2024-05-20 10:16:37 2024-05-20 10:16:37 Outpatient SFA SFA [id number] Chris Urbina 2024-04-20 09:03:50 2024-04-20 09:03:50 Outpatient SFA SFA [id number] Chris Urbina 2024-04-10 09:31:49 2024-04-10 09:31:49 Outpatient SFA SFA [id number] Chris Urbina 2024-04-10 00:00:00 2024-04-10 00:00:00 Outpatient Visit SFA [id number] Chris Urbina 2023-12-15 11:20:00 2024-04-04 10:53:00 Outpatient KUSUM CA [facility] [id number] [facility] 2020-04-11 00:00:00 2020-04-11 00:00:00 OFFICE VISIT EST PT LEVEL 3 STLMLC STLMLC [id number] [facility] 2019-02-20 11:00:00 2019-02-20 11:00:00 [facility] [id number] [facility] 2019-02-20 09:00:00 2019-02-20 09:00:00 [facility] [id number] [facility] Results Test Description Test Time Test Comments Results Result Co mments Source Chris UrbinaHEMOGLOBIN [id number] 00:00:00* Test Item Value Reference Range Interpretation Comme [facility] HEMOGLOBIN A1c (test code = 36897) 5.9 % Chris UrbinaLIPID [id number] 00:00:00* Test Item Value Reference Range Interpretation Comme nts CHOLESTEROL (test code = 2210) 176 MG/DL TRIGLYCERIDES (test code = 2232) 252 MG/DL HDL CHOLESTEROL (test code = 2220) 45 MG/DL CALC LDL CHOL (test code = 2237) 95 MG/DL RISK RATIO LDL/HDL (test cod e = 2238) 2.11 RATIO Chris UrbinaCOMPREHENSIVE METABOLIC [id number] 00:00:00* Test Item Value Reference Range Interpretation Comme nts GLUCOSE (test code = 2217) 160 MG/DL BUN (test code = 2208) 12 MG/DL CREATININE (test code = 2214) 0.71 MG/DL eGFR AMER. (test cod e = 39414) 146 ML/MIN/1.73 eGFR NON- AMER. (test code = 14430) 126 ML/MIN/1.73 CALC BUN/CREAT (test code = 2235) 17 RATIO SODIUM (test code = 2231) 139 MEQ/L POTASSIUM (test code = 2228) 3.8 MEQ/L CHLORIDE (test code = 2215) 104 MEQ/L CARBON DIOXIDE (test code = 2206) 25 MEQ/L CALCIUM (test code = 2209) 8.6 MG/DL PROTEIN, TOTAL (test code = 2229) 6.7 G/DL ALBUMIN (test code = 2201) 4.3 G/DL CALC GLOBULIN (test code = 2240) 2.4 G/DL CALC A/G RATIO (test code = 2234) 1.8 RATIO BILIRUBIN, TOTAL (test code = 2207) <0.2 MG/DL ALKALINE PHOSPHATASE (test code = 2204) 69 U/L AST (test code = 2218) 25 U/L ALT (test code = 2219) 60 U/L Chris [id number] 00:00:00* Test Item Value Reference Range Interpretation Comme nts TSH, THIRD GENERATION (test code = 2821) 1.740 UIU/ML Chris Urbina Notes Date/Time Note Provider Source Chris Urbina [facility]
--- NOTE | 2024-10-14 18:03 | ER ---
Nurse's Notes [facility] Name: Derrick Brody Age: 33 yrs Sex: Male : 1990 Arrival Date: 10/14/2024 Time: 17:34 Bed 14 Private MD: Diagnosis: Nail disorders in diseases classified elsewhere Presentation: 10/14 17:47 Chief complaint: Patient states: has a toenail problem on left great toe. Coronavirus iw screen: At this time, the client does not indicate any symptoms associated with coronavirus-19. Ebola Screen: No symptoms or risks identified at this time. Initial Sepsis Screen: Does the patient meet any 2 criteria? No. Patient's initial sepsis screen is negative. Does the patient have a suspected source of infection? No. Patient's initial sepsis screen is negative. Risk Assessment: Do you want to hurt yourself or someone else? Patient reports no desire to harm self or others. 17:47 Method Of Arrival: Ambulatory iw 17:47 Acuity: TEDDY 4 iw 18:07 Onset of symptoms was October 14, 2024. kj2 Historical: - Allergies: 17:47 No Known Allergies; iw - Home Meds: 17:56 buspirone 5 mg Oral tablet daily [Active]; kj2 - PMHx: 17:47 Asthma; COPD; Hypertension; iw - Immunization history:: Adult Immunizations. - Infectious Disease History:: Denies. - Social history:: Smoking status: unknown. Screenin:54 [facility] ED Fall Risk Assessment (Adult) History of falling in the last 3 months, kj2 including since admission No falls in past 3 months (0 pts) Confusion or Disorientation No (0 pts) Intoxicated or Sedated No (0 pts) Impaired Gait No (0 pts) Mobility Assist Device Used No (0 pt) Altered Elimination No (0 pt) Score/Fall Risk Level 0 - 2 = Low Risk Maintained a safe environment, Hourly rounding (assess needs \T\ fall precautionary measures) done. Abuse screen: Denies threats or abuse. Denies injuries from another. Nutritional screening: No deficits noted. Tuberculosis screening: No symptoms or risk factors identified. Assessment: 17:51 General: Appears in no apparent distress. Behavior is calm, cooperative. Pain: kj2 Complains of pain in left toe Pain currently is 6 out of 10 on a pain scale. Neuro: Level of Consciousness is awake, alert, obeys commands, Oriented to person, place, time, situation. Cardiovascular: Patient's skin is warm and dry. Respiratory: Airway is patent Respiratory effort is even, unlabored. GI: No signs and/or symptoms were reported involving the gastrointestinal system. : No signs and/or symptoms were reported regarding the genitourinary system. 18:07 Reassessment: Patient appears in no apparent distress at this time. Patient and/or kj2 family updated on plan of care and expected duration. Pain level reassessed. Patient is alert, oriented x 3, equal unlabored respirations, skin warm/dry/pink. Vital Signs: 17:47 BP 105 / 78; Pulse 83; Resp 16; Temp 97; Pulse Ox 100% ; Weight 85.73 kg; Height 6 ft. iw 2 in. ; 18:07 BP 108 / 78; Pulse 90; Resp 20; Temp 98.1; Pulse Ox 100% on R/A; kj2 17:47 Body Mass Index 24.27 (85.73 kg, 187.96 cm) iw ED Course: 17:41 Patient arrived in ED. im 17:45 Juan Manuel Saucedo PA is PHCP. cp 17:45 Chuy Nuno MD is Attending Physician. cp 17:48 Triage completed. iw 17:48 Arm band placed on. iw 17:51 Denise Batista, GEOVANNA is Primary Nurse. kj2 17:55 Patient has correct armband on for positive identification. Call light in reach. kj2 Provided Education on: call light. 17:56 No provider procedures requiring assistance completed. kj2 18:01 Isak Russo DPM is Referral Physician. cp 18:08 Patient did not have IV access during this emergency room visit. kj2 Administered Medications: No medications were administered Medication: 17:55 VIS not applicable for this client. kj2 Outcome: 18:02 Discharge ordered by . cp 18:08 Discharged to home ambulatory, kj2 18:08 Condition: stable 18:08 Discharge instructions given to patient, Instructed on discharge instructions, follow up and referral plans. Demonstrated understanding of instructions, follow-up care, medications, Prescriptions given X 1, 18:16 Patient left the ED. kj2 Signatures: Tracy Quinn RN RN Juan Manuel Saucedo PA PA cp LeyvaLucina sheldon Krystal, RN RN kj2 Corrections: (The following items were deleted from the chart) 17:48 17:47 BP 105 / 78; Pulse 83bpm; Resp 16bpm; Pulse Ox 100%; Temp 97F; iw iw
--- NOTE | 2024-10-14 18:03 | EDPHYS ---
Physician Documentation [facility] Name: Derrick Brody Age: 33 yrs Sex: Male : 1990 Arrival Date: 10/14/2024 Time: 17:34 Bed 14 Private MD: ED Physician Chuy Nuno HPI: 10/14 17:50 This 33 yrs old Male presents to ER via Ambulatory with complaints of left cp ingrown toenail. 17:50 The patient presents with a deformity. The complaints affect the left great toenail. cp 17:50 Onset: The symptoms/episode began/occurred for years. Associated signs and symptoms: cp Pertinent negatives: injury. Historical: - Allergies: 17:47 No Known Allergies; iw - Home Meds: 17:56 buspirone 5 mg Oral tablet daily [Active]; kj2 - PMHx: 17:47 Asthma; COPD; Hypertension; iw - Immunization history:: Adult Immunizations. - Infectious Disease History:: Denies. - Social history:: Smoking status: unknown. ROS: 17:53 Constitutional: history per hpi cp 17:53 Constitutional: Negative for fever, cp 17:53 MS/extremity: Positive for pain, of the left great toe, Negative for injury or acute deformity, 17:53 All other systems are negative, Exam: 17:55 Constitutional: The patient appears in no acute distress, alert, awake, well developed, cp well nourished, 17:55 Head/Face: Normocephalic, atraumatic. cp 17:55 Chest/axilla: Inspection: normal, 17:55 Cardiovascular: Rate: normal, 17:55 Respiratory: the patient does not display signs of respiratory distress, 17:55 Abdomen/GI: Inspection: abdomen appears normal, 17:55 Musculoskeletal/extremity: Extremities: noted in the left great toe: thickened and deformed nail, no erythema, no swelling of toe, Perfusion: the extremity is normally perfused throughout, the left great toe Sensation intact. Vital Signs: 17:47 BP 105 / 78; Pulse 83; Resp 16; Temp 97; Pulse Ox 100% ; Weight 85.73 kg; Height 6 ft. iw 2 in. ; 18:07 BP 108 / 78; Pulse 90; Resp 20; Temp 98.1; Pulse Ox 100% on R/A; kj2 17:47 Body Mass Index 24.27 (85.73 kg, 187.96 cm) iw MDM: 17:45 Medical Screening Exam initiated cp 17:50 Differential diagnosis: cellulitis, abscess, fungal infection, ingrown nail. cp 18:01 Data reviewed: vital signs, nurses notes, and as a result, I will discharge patient. cp 18:02 Counseling: I had a detailed discussion with the patient and/or guardian regarding the cp historical points, exam findings, and any diagnostic results supporting the discharge/admit diagnosis, the need for outpatient follow up, for definitive care, a business continuity planner, to return to the emergency department if symptoms worsen or persist or if there are any questions or concerns that arise at home. Administered Medications: No medications were administered Disposition Summary: 10/14/24 18:02 Discharge Ordered Notes: Location: Home cp Problem: new cp Symptoms: are unchanged cp Condition: Stable cp Diagnosis - Nail disorders in diseases classified elsewhere cp Followup: cp - With: Isak Russo DPM - When: 1 week - Reason: Recheck today's complaints Discharge Instructions: - Discharge Summary Sheet cp - Ingrown Toenail cp - Fungal Nail Infection cp Forms: - Medication Reconciliation Form cp - Antibiotic Education cp - Prescription Opioid Use cp - Patient Portal Instructions cp - Leadership Thank You Letter cp Prescriptions: - ketoconazole 2 % Topical cream - apply 1 application TOPICAL route 2-3 times daily; 60 gram tube; Refills: 0, cp Product Selection Permitted Signatures: Tracy Quinn, RN RN Juan Manuel Saucedo PA PA cp Denise Batista RN RN kj2
[2024-10-14 18:21] VITALS: O2SAT 100
[2024-10-14 18:22] VITALS: BP 108/78; TEMP 98.1
== END 2024-10-14 18:16 | disposition home or self-care (01) ==
LOC: ER 17:34
DX: L62 Nail disorders in diseases classified elsewhere (principal)
CPT/HCPCS: 99283

== ENCOUNTER 2024-10-14 20:17 | Emergency (ER) | payer SELFPAY ==
--- OUTSIDE RECORDS SUMMARY | 2024-10-14 20:20 | XMS REPORT | Continuity of Care Document ---
Author Name Unknown Address [address] [facility] [address] [place] [address] Organization [facility] [place] Address [address] [facility] [address] [place] [address] Care Team Providers Care Personnel Worker Name Role Phone Federicau Marilee HAUSER Primary Care Physician Andrea Nuno Attending Clinician KUSUM Zuniga Attending Clinician Unavailab KUSUM Durán Admitting Clinician Unavailab le Payers Payer Name Policy Type Policy Number Effective Date Expirati on Date Source DCB COMPETENCY BUDDHIST [id number] 2023 00:00:00 Problems Condition Name Condition Details Condition Category Status Onset Date Resolution Date Last Treatment Date Treating Clinician Comments Source Kidney stone Kidney stone Problem Active [facility] Social History Social Habit Start Date Stop Date Quantity Comments Source History of Tobacco Use Former Smoker [facility] Sex Assigned At [facility] Smoking Status Start Date Stop Date Source Former Smoker 2020-04-11 00:00:00 2020-04-11 00:00:00 [facility] Medications Ordered Medication Name Filled Medication Name Start Date Stop Date Current Medication? Ordering Clinician Indication Dosage Frequency Signature (SIG) Comments Components Source benztropine 1 mg tablet 2023-07 0-03 00:00: 00 Yes 1mg Chris F Carlitos Abilify 2 mg tablet 2023-07 0-03 00:00: 00 Yes 1mg Chris F Carlitos gabapentin 100 mg capsule 2023-07 0-03 00:00: 00 Yes 1mg Chris Urbina buspirone 5 mg tablet 30 00:00: 00 Yes mg Chris Urbina losartan 100 mg tablet 0 30 00:00: 00 Yes 1mg Chris Urbina montelukast 10 mg tablet 0 04-10 00:00: 00 Yes 1mg Chris Urbina albuterol sulfate 2.5 mg/3 mL (0.083 %) solution for nebulizatio n 04-10 00:00: 00 Yes 1/3 mL (0.083 %) Chris Urbina albuterol sulfate 0.63 mg/3 mL solution for nebulizatio n 04-10 00:00: 00 Yes 1mg/3 mL Chris Urbina Dose Unknown - 00:00: 00 Yes Chris Urbina Dose Unknown 01-27 00:00: 00 Yes Chris Urbina benzonatate 100 mg capsule 01-23 00:00: 00 Yes 12mg Chris Urbina Dose Unknown 15 00:00: 00 Yes Chris Urbina pantoprazol e 40 mg tablet,mickie yed release 14 00:00: 00 Yes 1mg Chris Urbina Xopenex HFA 45 mcg/actuati on aerosol inhaler 01-21 00:00: 00 Yes 12mcg/a ctuatio n Chris Urbina montelukast 10 mg tablet - 00:00: 00 Yes 1mg Chris Urbina losartan 100 mg tablet 01-21 00:00: 00 Yes 1mg Chris Urbina lansoprazol e 30 mg delayed release,dis integrating tablet 01-21 00:00: 00 Yes 1mg Chris Urbina esomeprazol [...] Urbina omeprazole 40 mg capsule,del ayed release 01-02 00:00: 00 Yes 1mg Chris Urbina Xopenex HFA 45 mcg/actuati on aerosol inhaler 10-09 00:00: 00 Yes 12mcg/a ctuatio n Chris Urbina pantoprazol e 40 mg tablet,mickie yed release 10-09 00:00: 00 Yes 1mg Chris Urbina montelukast [...] Xopenex HFA 45 mcg/actuati on aerosol inhaler 08-19 00:00: 00 Yes 12mcg/a ctuatio n Chris Urbina pantoprazol e 40 mg tablet,mickie yed release 08-19 00:00: 00 Yes 1mg Chris Urbina montelukast 10 mg tablet 2 00:00: 00 Yes 1mg Chris Urbina lisinopril 20 mg-hydrochl orothiazide 12.5 mg tablet 2 00:00: 00 Yes 1mg Chris Urbina ofloxacin 0.3 % ear drops 2019-07 00:00: 00 Yes 3% Chris Urbina lisinopril 20 mg-hydrochl orothiazide 12.5 mg tablet 2019-07 00:00: 00 Yes 1mg Chris Urbina azithromyci n 250 mg tablet 2019-07 00:00: 00 Yes mg Chris Urbina Xopenex HFA 45 mcg/actuati on aerosol inhaler 2019-07 1- 00:00: 00 Yes 12mcg/a ctuatio n Chris F Carlitos montelukast 10 mg tablet 2019-07 00:00: 00 [...] :00 No BID Cefdinir 300 MG Common [facility] Vital Signs Vital Name Observation Time Observation Value Comments Jagruti shah height 2020-04-11 08:30:00 74 [in_i] Commo n [facility] weight 2020-04-11 08:30:00 315 [lb_av] Comm on [facility] temperature 2020-04-11 08:30:00 96.8 [degF] Com mon [facility] bmi 2020-04-11 08:30:00 40.44 kg/m2 Comm on [facility] oximetry 2020-04-11 08:30:00 95 % Commo n [facility] blood pressure systolic 2020-04-11 08:30:00 147 mm[Hg] Common [facility] blood pressure diastolic 2020-04-11 08:30:00 90 mm[Hg] Common [facility] BP Systolic 2024-04-10 09:47:00 137 mm[Hg] Step [...] Weight Measured 2022-01-21 11:38:00 284.20 pounds Chris Sammie Urbina Height Measured 2022-01-21 11:38:00 74.00 inches Chris Sammie Urbina Body Temperature 2022-01-21 11:38:00 98.40 degrees Chris [...] 2021-05-28 17:00:00 139 mm[Hg] Step hen F Carliots BP Diastolic 2021-05-28 17:00:00 87 mm[Hg] Monico [...] Carlitos BP Diastolic 2020-10-09 14:48:00 82 mm[Hg] Monico phen F Carlitos Weight Measured 2020-10-09 14:48:00 [...] Carlitos Respiratory Rate 2020-04-30 15:02:00 17.00 /min Crhis F Carlitos Encounters Start Date/Time End Date/Time Encounter Type Admission Type Attending [facility] Care Department Encounter ID Source 2021-08-06 11:50:54 [facility] [id number] 2021-08-06 11:49:32 [facility] [id number] 2024-10-09 10:13:11 2024-10-09 10:13:11 Outpatient SFA [facility] [...] 2024-04-10 00:00:00 2024-04-10 00:00:00 Outpatient Visit SFA [id number] Chris Urbina 2023-12-15 11:20:00 2024-04-04 10:53:00 Outpatient KUSUM [facility] [id number] 2020-04-11 00:00:00 2020-04-11 00:00:00 OFFICE VISIT EST PT LEVEL 3 STLMLC STLMLC [id number] [facility] 2019-02-20 11:00:00 2019-02-20 11:00:00 [facility] [id number] [facility] 2019-02-20 09:00:00 2019-02-20 09:00:00 [facility] [id number] [facility] Results Test Description Test Time Test Comments Results Result Co mments Source Chris UrbinaHEMOGLOBIN [id number] 00:00:00* Test Item Value Reference Range Interpretation Comme [facility] HEMOGLOBIN A1c (test code = 54878) 5.9 % Chris UrbinaLIPID [id number] 00:00:00* Test Item Value Reference Range Interpretation Comme nts CHOLESTEROL (test code = 2210) 176 MG/DL TRIGLYCERIDES (test code = 2232) 252 MG/DL HDL CHOLESTEROL (test code = 2220) 45 MG/DL CALC LDL CHOL (test code = 2237) 95 MG/DL RISK RATIO LDL/HDL (test cod e = 2238) 2.11 RATIO Chris UrbinaCOMPREHENSIVE METABOLIC [id number] 00:00:00* Test Item Value Reference Range Interpretation Comme nts GLUCOSE (test code = 2217) 160 MG/DL BUN (test code = 2208) 12 MG/DL CREATININE (test code = 2214) 0.71 MG/DL eGFR AMER. (test cod e = 68672) 146 ML/MIN/1.73 eGFR NON- AMER. (test code = 82063) 126 ML/MIN/1.73 CALC BUN/CREAT (test code = [...] (test code = 2219) 60 U/L Chris [id number] 00:00:00* Test Item Value Reference Range Interpretation Comme nts TSH, THIRD GENERATION (test code = 2821) 1.740 UIU/ML Chris Urbina Notes Date/Time Note Provider Source Chris Urbina [facility]
[2024-10-14] MEDS ORDERED: SERTRALINE HCL 50 MG TAB ONE (20:35)
--- NOTE | 2024-10-14 20:41 | EDPHYS ---
Physician Documentation [facility] Name: Derrick Brody Age: 33 yrs Sex: Male : 1990 Arrival Date: 10/14/2024 Time: 20:17 Bed 20 Private MD: ED Physician Juan Manuel Landa HPI: 10/14 20:34 This 33 yrs old Male presents to ER via Unassigned with complaints of Psych courtney Problem. 20:34 The patient presents to the emergency department with anxiety, depression, out of meds. courtney Onset: The symptoms/episode began/occurred 1 day(s) ago. Past psychiatric history: Prior diagnosis: depression, schizophrenia, Psychiatric medications include: Zoloft. Associated signs and symptoms: Pertinent positives; anxiety. Severity of symptoms: At their worst the symptoms were mild in the emergency department the symptoms are unchanged. The patient has experienced similar episodes in the past. Historical: - PMHx: 20:35 Asthma; Hypertension; COPD; br2 - Immunization history:: Adult Immunizations not up to date. - Infectious Disease History:: Denies. - Family history:: not pertinent. - Social history:: Smoking status: Patient reports the use of cigarette tobacco products, Patient uses street drugs, marijuana, Patient/guardian denies using alcohol. ROS: 20:35 Constitutional: Negative for fever, chills, and weight loss, Eyes: Negative for injury, courtney pain, redness, and discharge, ENT: Negative for injury, pain, and discharge, Neck: Negative for injury, pain, and swelling, Cardiovascular: Negative for chest pain, palpitations, and edema, Respiratory: Negative for shortness of breath, cough, wheezing, and pleuritic chest pain, Abdomen/GI: Negative for abdominal pain, nausea, vomiting, diarrhea, and constipation, Back: Negative for injury and pain, : Negative for injury, bleeding, discharge, and swelling, MS/Extremity: Negative for injury and deformity, Skin: Negative for injury, rash, and discoloration, Neuro: Negative for headache, weakness, numbness, tingling, and seizure, Allergy/Immunology: Negative for hives, rash, and allergies, Endocrine: Negative for neck swelling, polydipsia, polyuria, polyphagia, and marked weight changes, Hematologic/Lymphatic: Negative for swollen nodes, abnormal bleeding, and unusual bruising, 20:35 Psych: Positive for anxiety, depression, Exam: 20:35 Constitutional: This is a well developed, well nourished patient who is awake, alert, courtney and in no acute distress. Head/Face: Normocephalic, atraumatic. Eyes: Pupils equal round and reactive to light, extra-ocular motions intact. Lids and lashes normal. Conjunctiva and sclera are non-icteric and not injected. Cornea within normal limits. Periorbital areas with no swelling, redness, or edema. ENT: Nares patent. No nasal discharge, no septal abnormalities noted. Tympanic membranes are normal and external auditory canals are clear. Oropharynx with no redness, swelling, or masses, exudates, or evidence of obstruction, uvula midline. Mucous membranes moist. Neck: Trachea midline, no thyromegaly or masses palpated, and no cervical lymphadenopathy. Supple, full range of motion without nuchal rigidity, or vertebral point tenderness. No Meningismus. Chest/axilla: Normal chest wall appearance and motion. Nontender with no deformity. No lesions are appreciated. Cardiovascular: Regular rate and rhythm with a normal S1 and S2. No gallops, murmurs, or rubs. Normal PMI, no JVD. No pulse deficits. Respiratory: Lungs have equal breath sounds bilaterally, clear to auscultation and percussion. No rales, rhonchi or wheezes noted. No increased work of breathing, no retractions or nasal flaring. Abdomen/GI: Soft, non-tender, with normal bowel sounds. No distension or tympany. No guarding or rebound. No evidence of tenderness throughout. Back: No spinal tenderness. No costovertebral tenderness. Full range of motion. Male : Normal genitalia with no discharge or lesions. Skin: Warm, dry with normal turgor. Normal color with no rashes, no lesions, and no evidence of cellulitis. MS/ Extremity: Pulses equal, no cyanosis. Neurovascular intact. Full, normal range of motion., bilateral aka Neuro: Awake and alert, GCS 15, oriented to person, place, time, and situation. Cranial nerves II-XII grossly intact. Motor strength 5/5 in all extremities. Sensory grossly intact. Cerebellar exam normal. Normal gait. 20:35 Psych: Behavior/mood is pleasant, cooperative, Affect is calm, Oriented to person, place, time, Patient has no thoughts/intents to harm self or others. Judgement / Insight is normal. Memory is normal. Delusions/hallucinations are not present. Vital Signs: 20:33 BP 125 / 78; Pulse 72; Resp 18; Temp 97.2(O); Pulse Ox 99% on R/A; Weight 81.65 kg; br2 Height 6 ft. 2 in. ; Pain 0/10; 20:33 Body Mass Index 23.11 (81.65 kg, 187.96 cm) br2 20:33 Pain Scale: Adult br2 Crystal Coma Score: 20:35 Eye Response: spontaneous(4). Motor Response: obeys commands(6). Verbal Response: courtney oriented(5). Total: 15. MDM: 20:22 Medical Screening Exam initiated courtney 20:38 Data reviewed: vital signs, nurses notes. courtney Administered Medications: 20:34 CANCELLED (Physician Discretion): ns 0.9% 1000 ml IV at 1000 ml once; to be given as a vc1 bolus over 60 minutes 20:54 Drug: sertraline 50 mg PO once Route: PO; vc1 20:54 Follow up: Response: Medication administered at discharge. vc1 Disposition Summary: 10/14/24 20:40 Discharge Ordered Notes: Location: Home courtney Problem: new courtney Symptoms: have improved courtney Condition: Stable courtney Diagnosis - Anxiety disorder, unspecified courtney Followup: courtney - With: Private Physician - When: 1 - 2 days - Reason: Recheck today's complaints, Re-evaluation by your physician Discharge Instructions: - Discharge Summary Sheet courtney - Generalized Anxiety Disorder, Adult courtney - Managing Anxiety, Adult courtney Forms: - Medication Reconciliation Form courtney - Antibiotic Education courtney - Prescription Opioid Use courtney - Patient Portal Instructions [facility] - Leadership Thank You Letter [facility] Prescriptions: - Zoloft 50 mg Oral tablet - take 1 tablet ORAL route once daily; 10 tablet; Refills: 0, Product Selection courtney Permitted Signatures: Dispatcher [employer] EDJuan Manuel Alvaraod MD MD cha Calcote, Vanessa, RN RN vc1 Vianca Cadena RN RN br2 Corrections: (The following items were deleted from the chart) 20:33 20:24 EKG - Nurse/Tech ordered. [facility] vc1 20:33 20:24 IV Saline Lock ordered. [facility] vc1 20:33 20:24 Labs collected and sent ordered. courtney vc1 20:33 20:24 Suicide Screening ([place]) ordered. courtney vc1 20:34 20:24 NS 0.9% IV 1000 ml IV at 1000 ml once; to be given as a bolus over 60 minutes vc1 ordered. courtney 20:44 20:24 PROTIME (+INR)+COAG.LAB.BRZ ordered. EDMS EDMS 20:44 20:24 PTT, ACTIVATED+COAG.LAB.BRZ ordered. EDMS EDMS 20:44 20:24 SALICYLATE+C.LAB.BRZ ordered. EDMS EDMS 20:44 20:24 Urinalysis+U.LAB.BRZ ordered. EDMS EDMS 20:44 20:24 URINE DRUG SCREEN+UC.LAB.BRZ ordered. EDMS EDMS 20:45 20:24 ACETAMINOPHEN+C.LAB.BRZ ordered. EDMS EDMS 20:45 20:24 BASIC METABOLIC PANEL+C.LAB.BRZ ordered. EDMS EDMS 20:45 20:24 CBC+H.LAB.BRZ ordered. EDMS EDMS 20:45 20:24 ETHANOL+C.LAB.BRZ ordered. EDMS EDMS 20:45 20:24 HEPATIC FUNCTION+C.LAB.BRZ ordered. EDMS EDMS
--- NOTE | 2024-10-14 20:41 | ER ---
Nurse's Notes [facility] Name: Derrick Brody Age: 33 yrs Sex: Male : 1990 Arrival Date: 10/14/2024 Time: 20:17 Bed 20 Private MD: Diagnosis: Anxiety disorder, unspecified Presentation: 10/14 20:22 Onset of symptoms is unknown. Care prior to arrival: None. vc1 20:33 Chief complaint: Patient states: PT STATES HE IS OUT OF MEDS FOR ANXIETY, ADHD. br2 Coronavirus screen: Client denies travel out of the [place] in the last 14 days. Ebola Screen: Patient denies exposure to infectious person. Initial Sepsis Screen: Does the patient meet any 2 criteria? No. Patient's initial sepsis screen is negative. Does the patient have a suspected source of infection? No. Patient's initial sepsis screen is negative. Risk Assessment: Do you want to hurt yourself or someone else? Patient reports no desire to harm self or others. 20:33 Method Of Arrival: Ambulatory br2 20:33 Acuity: TEDDY 5 br2 Triage Assessment: 20:35 General: Appears in no apparent distress. comfortable, Behavior is calm, cooperative. br2 Pain: Denies pain. Historical: - PMHx: 20:35 Asthma; Hypertension; COPD; br2 - Immunization history:: Adult Immunizations not up to date. - Infectious Disease History:: Denies. - Family history:: not pertinent. - Social history:: Smoking status: Patient reports the use of cigarette tobacco products, Patient uses street drugs, marijuana, Patient/guardian denies using alcohol. Screenin:55 [facility] ED Fall Risk Assessment (Adult) History of falling in the last 3 months, vc1 including since admission No falls in past 3 months (0 pts) Confusion or Disorientation No (0 pts) Intoxicated or Sedated No (0 pts) Impaired Gait No (0 pts) Mobility Assist Device Used No (0 pt) Altered Elimination No (0 pt) Score/Fall Risk Level 0 - 2 = Low Risk Oriented to surroundings, Maintained a safe environment, Educated pt \\T\\ family on fall prevention, incl call for assistance when getting out of bed, Hourly rounding (assess needs \\T\\ fall precautionary measures) done. Abuse screen: Denies threats or abuse. Nutritional screening: No deficits noted. Tuberculosis screening: No symptoms or risk factors identified. Assessment: 20:54 General: Appears in no apparent distress. comfortable, slender, well groomed, Behavior vc1 is calm, cooperative, appropriate for age. Pain: Denies pain. Neuro: Level of Consciousness is awake, alert, obeys commands, Oriented to person, place, time, situation, Appropriate for age. Cardiovascular: Heart tones S1 S2 present Capillary refill < 3 seconds Patient's skin is warm and dry. Respiratory: Airway is patent Respiratory effort is even, unlabored, Respiratory pattern is regular, symmetrical, Breath sounds are clear bilaterally. GI: No deficits noted. No signs and/or symptoms were reported involving the gastrointestinal system. : No deficits noted. No signs and/or symptoms were reported regarding the genitourinary system. EENT: No deficits noted. No signs and/or symptoms were reported regarding the EENT system. Derm: Skin is intact, is healthy with good turgor, Skin is dry, Skin is normal, Skin temperature is warm. Musculoskeletal: Circulation, motion, and sensation intact. Range of motion: intact in all extremities. Psych: 20:22 [place] Suicide Severity Screening: In the past month, have you wished you were vc1 or wished you could go to sleep and not wake up? Patient responds "No." "In the past month, have you actually had any thoughts of killing yourself?" Patient responds "no." "In your lifetime, have you ever done anything, started to do anything, or prepared to do anything to end your life?" Patient responds "no.". 20:22 Subjective: Patient's mood is sad, Delusions are denied, Hallucinations are denied. vc1 Objective: Patient is cooperative, Speech is soft, Affect is flat. Interventions: Suicide screening negative. Safety Checks: Suicide screening negative. Pt denies substance abuse. Commitment: Pt no on suicide watch. Vital Signs: 20:33 BP 125 / 78; Pulse 72; Resp 18; Temp 97.2(O); Pulse Ox 99% on R/A; Weight 81.65 kg; br2 Height 6 ft. 2 in. ; Pain 0/10; 20:33 Body Mass Index 23.11 (81.65 kg, 187.96 cm) br2 20:33 Pain Scale: Adult br2 Beulah Coma Score: 20:35 Eye Response: spontaneous(4). Motor Response: obeys commands(6). Verbal Response: courtney oriented(5). Total: 15. ED Course: 20:18 Patient arrived in ED. rg4 20:21 Juan Manuel Landa MD is Attending Physician. courtney 20:22 Patient has correct armband on for positive identification. Bed in low position. vc1 Provided Education on: f/u with pcp for refill. Pulse ox on. NIBP on. 20:35 Triage completed. br2 20:35 Arm band placed on. br2 20:54 Tia Apodaca, RN is Primary Nurse. vc1 20:58 No provider procedures requiring assistance completed. Patient did not have IV access vc1 during this emergency room visit. Administered Medications: 20:34 CANCELLED (Physician Discretion): ns 0.9% 1000 ml IV at 1000 ml once; to be given as a vc1 bolus over 60 minutes 20:54 Drug: sertraline 50 mg PO once Route: PO; vc1 20:54 Follow up: Response: Medication administered at discharge. vc1 Medication: 20:56 VIS not applicable for this client. vc1 Outcome: 20:40 Discharge ordered by . courtney 20:58 Discharged to home ambulatory, vc1 20:58 Condition: stable 20:58 Discharge instructions given to patient, Instructed on discharge instructions, follow up and referral plans. medication usage, Demonstrated understanding of instructions, follow-up care, medications, Prescriptions given X 1, 20:58 Patient left the ED. vc1 Signatures: Juan Manuel Landa MD MD cha Garcia, Rubi rg4 Tia Apodaca, RN RN vc1 Vianca Cadena RN RN br2
[2024-10-14 21:04] VITALS: BP 125/78; TEMP 97.2; O2SAT 99
== END 2024-10-14 20:58 | disposition home or self-care (01) ==
LOC: ER 20:17
DX: F41.9 Anxiety disorder, unspecified (principal); Z72.0 Tobacco use

== ENCOUNTER 2024-11-08 00:51 | Emergency (ER) | payer SELFPAY ==
--- OUTSIDE RECORDS SUMMARY | 2024-11-08 00:54 | XMS REPORT | Continuity of Care Document ---
Author Name Unknown Address [address] [facility] [address] [place] [address] Organization [facility] [place] Address [address] [facility] [address] [place] [address] Care Team Providers Care Timber Inspector Name Role Phone Marilee Franks Primary Care Physician Andrea Nuno Attending Clinician KUSUM Zuniga Attending Clinician Unavailab KUSUM Durán Admitting Clinician Unavailab le Payers Payer Name Policy Type Policy Number Effective Date Expirati on Date Source DCB COMPETENCY EPISCOPALIAN [id number] 2023 00:00:00 Problems Condition Name Condition Details Condition Category Status Onset Date Resolution Date Last Treatment Date Treating Clinician Comments Source Kidney stone Kidney stone Problem Active [facility] Social History Social Habit Start Date Stop Date Quantity Comments Source History of Tobacco Use Former Smoker [facility] Sex Assigned At [facility] Smoking Status Start Date Stop Date Source Former Smoker 2020-04-11 00:00:00 2020-04-11 00:00:00 [facility] Medications Ordered Medication Name Filled Medication Name [...] :00 No BID Cefdinir 300 MG Common [facility] Vital Signs Vital Name Observation Time Observation Value Comments Jagruti shah height 2020-04-11 08:30:00 74 [in_i] Commo n [facility] weight 2020-04-11 08:30:00 315 [lb_av] Comm on [facility] temperature 2020-04-11 08:30:00 96.8 [degF] Com mon [facility] bmi 2020-04-11 08:30:00 40.44 kg/m2 Comm on [facility] oximetry 2020-04-11 08:30:00 95 % Commo n [facility] blood pressure systolic 2020-04-11 08:30:00 147 mm[Hg] Common [facility] blood pressure diastolic 2020-04-11 08:30:00 90 mm[Hg] Common [facility] BP Systolic 2024-04-10 09:47:00 137 mm[Hg] [...] End Date/Time Encounter Type Admission Type Attending [facility] Care Department Encounter ID Source 2021-08-06 11:50:54 [facility] [id number] [facility] 2021-08-06 11:49:32 [facility] [id number] [facility] 2024-10-09 10:13:11 2024-10-09 10:13:11 Outpatient [...] 2024-04-10 00:00:00 2024-04-10 00:00:00 Outpatient Visit SFA [id number] Chris Urbina 2023-12-15 11:20:00 2024-04-04 10:53:00 Outpatient KUSUM [facility] [id number] [facility] 2020-04-11 00:00:00 2020-04-11 00:00:00 OFFICE VISIT EST PT LEVEL 3 STLMLC STLMLC [id number] [facility] 2019-02-20 11:00:00 2019-02-20 11:00:00 [facility] [id number] [facility] 2019-02-20 09:00:00 2019-02-20 09:00:00 [facility] [id number] [facility] Results Test Description Test Time Test Comments Results Result Co mments Source Chris UrbinaHEMOGLOBIN [id number] 00:00:00* Test Item Value Reference Range Interpretation Comme [facility] HEMOGLOBIN A1c (test code = 37241) 5.9 % Chris UrbinaLIPID [id number] 00:00:00* Test Item Value Reference Range Interpretation Comme nts CHOLESTEROL (test code = 2210) 176 MG/DL TRIGLYCERIDES (test code = 2232) 252 MG/DL HDL CHOLESTEROL (test code = 2220) 45 MG/DL CALC LDL CHOL (test code = 2237) 95 MG/DL RISK RATIO LDL/HDL (test cod e = 2238) 2.11 RATIO Chris UrbinaCOMPREHENSIVE METABOLIC [id number] 00:00:00* Test Item Value Reference Range Interpretation Comme nts GLUCOSE (test code = 2217) 160 MG/DL BUN (test code = 2208) 12 MG/DL CREATININE (test code = 2214) 0.71 MG/DL eGFR AMER. (test cod e = 15007) 146 ML/MIN/1.73 eGFR NON- AMER. (test code = 73695) 126 ML/MIN/1.73 CALC BUN/CREAT (test code = [...] (test code = 2219) 60 U/L Chris [id number] 00:00:00* Test Item Value Reference Range Interpretation Comme nts TSH, THIRD GENERATION (test code = 2821) 1.740 UIU/ML Chris Urbina Notes Date/Time Note Provider Source [facility]
[2024-11-08] MEDS ORDERED: WATER FOR INJ,STERILE 10 ML ONE (01:45)
[2024-11-08] MEDS ORDERED: ZIPRASIDONE MESYLA 20 MG/VIAL IM ONE (01:45)
[2024-11-08] MEDS ORDERED: LORazepam 2 MG/ML VIAL ONE (01:50)
[2024-11-08] MEDS ORDERED: NA CHLORIDE 0.9% 1,000 ML ONE (02:16)
[2024-11-08 02:41] LABS: Absolute Lymphocytes (CBC) 1.3 K/uL (0.7-4.9); Absolute Monocytes 0.5 K/uL (0.1-1.3); Absolute Neutrophil 5.6 K/uL (1.8-8.0); Basophils % 0.5 % (0-1.3); Eosinophils % 0.4 % (0-4.4); Hematocrit 41.1 % (39.6-49.0); Hemoglobin 14.5 g/dL (13.6-17.9); Lymphocytes % 17.9 % (15.3-44.8); MCH 29.7 pg (27.0-35.0); MCHC 35.4 g/dL (32.0-36.0); MPV 8.8 fL (7.6-11.3); Monocytes % 6.3 % (3.3-12.3); Neutrophils % 74.9 % (41.7-73.7); Platelets 220 thou/uL (152-406); RBC Red Blood Cell Count 4.89 M/uL (4.33-5.43); Red Cell Distribution Width 12.6 % (12.1-15.2)
[2024-11-08 02:43] LABS: PT Prothrombin Time 12.9 SECONDS (10-13.0); PTT, Activated Partial Thromb 35.2 SECONDS (27.2-37.4); Protime INR 1.14
[2024-11-08 02:54] LABS: ALT/SGPT 18 U/L (16-61); Alkaline Phosphatase 63 U/L (45-117); Anion Gap 9.8 mEq/L (5.0-15.0); BUN Blood Urea Nitrogen 9 mg/dL (7-18); Bicarbonate 25 mEq/L (21-32); Bilirubin Total 0.5 mg/dL (0.2-1.0); Glomerular Filtration Rate 115 ml/min (=/>90); Glucose Level 139 mg/dL (74-106); Potassium 2.8 mEq/L (3.5-5.1); Sodium Level 139 mEq/L (136-145)
[2024-11-08 02:55] LABS: AST/SGOT < 10 U/L (15-37); Bilirubin Direct < 0.2 mg/dL (0-0.2); Bilirubin Indirect, Calculated 0.3 mg/dL (0.2-0.8)
[2024-11-08] MEDS ORDERED: KCL 20 MEQ/100 mL IVPB 100 ML IV ONE (04:12)
--- NOTE | 2024-11-08 07:03 | ER ---
Nurse's Notes [facility] Name: Derrick Brody Age: 33 yrs Sex: Male : 1990 Arrival Date: 11/08/2024 Time: 00:51 Bed 3 Private MD: Diagnosis: Acute methamphetamine intoxication, synthetic cannabis intoxication, acute drug induced psychosis, acute paranoia associated with drug intoxication;Hypokalemia Presentation: 11/08 01:58 Chief complaint: Patient states: he took meth, codeine, and k2 and is not feeling cp4 right. Coronavirus screen: Client denies travel out of the [place] in the last 14 days. At this time, the client does not indicate any symptoms associated with coronavirus-19. Ebola Screen: Patient negative for fever greater than or equal to 101.5 degrees Fahrenheit, and additional compatible Ebola Virus Disease symptoms Patient denies exposure to infectious person. Patient denies travel to an Ebola-affected area in the 21 days before illness onset. No symptoms or risks identified at this time. Initial Sepsis Screen: Does the patient meet any 2 criteria? HR > 90 bpm. No. Patient's initial sepsis screen is negative. Does the patient have a suspected source of infection? No. Patient's initial sepsis screen is negative. Risk Assessment: Do you want to hurt yourself or someone else? Patient reports no desire to harm self or others. Onset of symptoms was November 07, 2024. 01:58 Method Of Arrival: EMS: [facility] 01:58 Acuity: TEDDY 3 cp4 Triage Assessment: 02:00 General: Appears in no apparent distress. unkempt, Behavior is anxious. Pain: Denies cp4 pain. EENT: No signs and/or symptoms were reported regarding the EENT system. Neuro: Level of Consciousness is awake, alert, obeys commands, Oriented to person, place, time, situation. Cardiovascular: Patient's skin is warm and dry. Rhythm is sinus tachycardia. Respiratory: Airway is patent Respiratory effort is even, unlabored. GI: No signs and/or symptoms were reported involving the gastrointestinal system. : No signs and/or symptoms were reported regarding the genitourinary system. Derm: No signs and/or symptoms reported regarding the dermatologic system. Musculoskeletal: No signs and/or symptoms reported regarding the musculoskeletal system. Historical: - Allergies: 02:00 No Known Allergies; cp4 - PMHx: 02:00 Asthma; Hypertension; COPD; cp4 - Immunization history:: Adult Immunizations not up to date. - Infectious Disease History:: Denies. - Social history:: Smoking status: Patient denies any tobacco usage or history of. - Family history:: not pertinent. Screenin:02 [facility] Fall Risk Assessment (Adult) History of falling in the last 3 months, cp4 including since admission No falls in past 3 months (0 pts) Confusion or Disorientation No (0 pts) Intoxicated or Sedated No (0 pts) Impaired Gait No (0 pts) Mobility Assist Device Used No (0 pt) Altered Elimination No (0 pt) Score/Fall Risk Level 0 - 2 = Low Risk Oriented to surroundings, Maintained a safe environment, Assessed \\T\\ reinforced patient's understanding of fall precautions, Hourly rounding (assess needs \\T\\ fall precautionary measures) done. Abuse screen: Denies threats or abuse. Denies injuries from another. Nutritional screening: No deficits noted. Tuberculosis screening: No symptoms or risk factors identified. Assessment: 02:02 Reassessment: No changes from previously documented assessment. cp4 03:41 Reassessment: patient resting comfortably at this time. General: Appears in no apparent al5 distress. comfortable, Behavior is calm, cooperative. Pain: Denies pain. Neuro: Level of Consciousness is obeys commands, Oriented to person, place, time, situation. Cardiovascular: Capillary refill < 3 seconds Patient's skin is warm and dry. Rhythm is sinus rhythm. Respiratory: Airway is patent Respiratory effort is even, unlabored, Respiratory pattern is regular, symmetrical. GI: No signs and/or symptoms were reported involving the gastrointestinal system. : No signs and/or symptoms were reported regarding the genitourinary system. EENT: No signs and/or symptoms were reported regarding the EENT system. Derm: Skin is intact, is healthy with good turgor, Skin is pink, warm \\T\\ dry. normal. Musculoskeletal: No signs and/or symptoms reported regarding the musculoskeletal system. 07:30 Reassessment: Patient appears in no apparent distress at this time. General: Appears in db no apparent distress. comfortable, Behavior is calm, cooperative. 08:38 Reassessment: Patient appears in no apparent distress at this time. Patient and/or db family updated on plan of care and expected duration. Pain level reassessed. Patient is alert, oriented x 3, equal unlabored respirations, skin warm/dry/pink. PATIENT REPORTS DOES NOT HAVE A PHONE WITH HIM TO CALL FAMILY. PT IS TO HAVE FAMILY. 08:46 Reassessment: Patient appears in no apparent distress at this time. Patient and/or db family updated on plan of care and expected duration. Pain level reassessed. Patient is alert, oriented x 3, equal unlabored respirations, skin warm/dry/pink. Patient states feeling better. Patient states symptoms have improved. Overdose: 02:06 [place] Suicide Severity Screening: "In the past month, have you wished you were cp4 or wished you could go to sleep and not wake up?" Patient responds "no." "In the past month, have you actually had any thoughts of killing yourself?" Patient responds "no." "In your lifetime, have you ever done anything, started to do anything, or prepared to do anything to end your life?" Patient responds "no.". Patient took codeine, k2, and meth. Vital Signs: 01:58 BP 148 / 108; Pulse 122; Resp 18; Temp 98.4; Pulse Ox 98% ; Weight 91.63 kg; Height 6 cp4 ft. 2 in. ; Pain 0/10; 02:00 BP 148 / 113; Pulse 130; Resp 18; Pulse Ox 99% ; al5 02:30 BP 129 / 86; Pulse 98; Resp 15; Pulse Ox 97% ; al5 03:00 BP 125 / 79; Pulse 94; Resp 16; Pulse Ox 97% ; al5 03:30 BP 134 / 83; Pulse 90; Resp 16; Pulse Ox 98% ; al5 04:00 BP 111 / 76; Pulse 84; Resp 18; Pulse Ox 98% ; cp4 04:30 BP 111 / 75; Pulse 80; Resp 18; Pulse Ox 98% ; cp4 05:30 BP 114 / 75; Pulse 77; Resp 18; Pulse Ox 98% ; cp4 06:30 BP 128 / 78; Pulse 70; Resp 18; Pulse Ox 97% ; cp4 07:30 BP 121 / 88; Pulse 101; Resp 18; Pulse Ox 100% ; db 08:00 BP 124 / 88; Pulse 68; Resp 16; Pulse Ox 100% on R/A; db 01:58 Body Mass Index 25.93 (91.63 kg, 187.96 cm) cp4 01:58 Pain Scale: Adult cp4 [place] Coma Score: 02:55 Eye Response: spontaneous(4). Motor Response: obeys commands(6). Verbal Response: sp4 confused(4). Total: 14. ED Course: 00:52 Patient arrived in ED. jj6 00:54 Julián Pelayo MD is Attending Physician. sp4 02:00 Triage completed. cp4 02:00 Arm band placed on right wrist. Patient placed in an exam room, on a stretcher. cp4 02:02 Bed in low position. Call light in reach. Side rails up X2. cp4 02:02 No provider procedures requiring assistance completed. cp4 02:03 EKG done, by environmental laboratory technician. af3 02:06 Loren Hill is Primary Nurse. cp4 02:24 Acetaminophen Sent. vk 02:24 Basic Metabolic Panel Sent. vk 02:24 CBC with Diff Sent. vk 02:24 ETOH Level Sent. vk 02:24 Hepatic Function Sent. vk 02:24 PT-INR Sent. vk 02:24 Ptt, Activated Sent. vk 02:24 Salicylate Sent. vk 02:24 Initial lab(s) drawn, by me, sent to lab. Inserted saline lock: 20 gauge in right vk antecubital area, using aseptic technique. Blood collected. Flushed with 10 mL NS. 03:20 Beena Carballo, requested pt call her when he is ready for discharge. [phone]. rv1 08:46 Provided Education on: DISCHARGE. Pulse ox on. NIBP on. Client placed on continuous db cardiac and pulse oximetry monitoring. NIBP monitoring applied. bus monitor on. Warm blanket given. Pillow given. 08:46 IV discontinued, intact, bleeding controlled, No redness/swelling at site. db Administered Medications: 02:06 Drug: LORazepam IM 2 mg IM once Route: IM; Site: right deltoid; cp4 04:18 Follow up: Response: No adverse reaction cp4 02:06 Drug: Geodon IM 20 mg IM once Route: IM; Site: left ventrogluteal; cp4 04:18 Follow up: Response: No adverse reaction cp4 02:21 Drug: NS 0.9% IV 1000 ml IV at 1000 ml once; to be given as a bolus over 60 minutes cp4 Route: IV; Rate: 1000 ml; Site: right antecubital; 04:18 Follow up: IV Status: Completed infusion cp4 02:21 Drug: NS 0.9% IV 1000 ml IV at 1000 ml once; to be given as a bolus over 60 minutes cp4 Route: IV; Rate: 1000 ml; Site: right antecubital; 04:18 Follow up: IV Status: Completed infusion cp4 04:18 Drug: Potassium Chloride IV 20 mEq IV at calculated rate once; administer over 1-2 cp4 hours Route: IV; Rate: calculated rate; Site: right antecubital; 08:47 Follow up: Response: No adverse reaction; IV Status: Completed infusion db Medication: 02:02 VIS not applicable for this client. cp4 Outcome: 07:02 Discharge ordered by MD. graff 08:46 Discharged to home ambulatory, db 08:46 Condition: stable 08:46 Discharge instructions given to patient, Instructed on discharge instructions, follow up and referral plans. 08:48 Patient left the ED. db Signatures: Julissa Wayne jj6 Krystina Jack, RN RN db Catherine Sanchez rv1 Julián Pelayo MD MD sp4 Loren Hill cp4 Deysi Burris Amanda, RN RN al5 Audrey Cannon3
--- NOTE | 2024-11-08 07:03 | EDPHYS ---
Physician Documentation [facility] Name: Derrick Brody Age: 33 yrs Sex: Male : 1990 Arrival Date: 11/08/2024 Time: 00:51 Bed 3 Private MD: ED Physician Julián Pelayo HPI: 11/08 02:25 This 33 yrs old Male presents to ER via EMS with complaints of Drug Abuse. sp4 02:55 33-year-old male with history of polysubstance abuse, presents with acute intoxication, sp4 patient reportedly took methamphetamine, ketamine, and synthetic marijuana. Patient presents with agitation, complaint of chest discomfort and feeling unwell. Historical: - Allergies: 02:00 No Known Allergies; cp4 - PMHx: 02:00 Asthma; Hypertension; COPD; cp4 - Immunization history:: Adult Immunizations not up to date. - Infectious Disease History:: Denies. - Social history:: Smoking status: Patient denies any tobacco usage or history of. - Family history:: not pertinent. ROS: 02:55 Constitutional: Negative for fever, chills, and weight loss, positive for intoxication, sp4 positive for agitation, positive for feeling unwell 02:55 All other systems are negative, Exam: 02:55 Constitutional: Patient is thin appearing male, agitated, tachycardic, appearing sp4 anxious and poorly cooperative. Paranoid ideation Head/Face: Normocephalic, atraumatic. Eyes: Pupils equal round and reactive to light, extra-ocular motions intact. Lids and lashes normal. Conjunctiva and sclera are not injected. Cornea within normal limits. Periorbital areas with no swelling, redness, or edema. ENT: Nares patent. No nasal discharge, no septal abnormalities noted. Tympanic membranes are normal and external auditory canals are clear. Oropharynx with no redness, swelling, or masses, exudates, or evidence of obstruction, uvula midline. Mucous membranes moist. Neck: Trachea midline, no thyromegaly or masses palpated, and no cervical lymphadenopathy. Supple, full range of motion without nuchal rigidity, or vertebral point tenderness. Chest/axilla: Normal chest wall appearance and motion. Nontender with no deformity. No lesions are appreciated. Cardiovascular: Regular tachycardia, no gallops, murmurs, or rubs. Normal PMI, no JVD. No pulse deficits. Respiratory: Lungs have equal breath sounds bilaterally, clear to auscultation and percussion. No rales, rhonchi or wheezes noted. No increased work of breathing, no retractions or nasal flaring. Abdomen/GI: Soft, with normal bowel sounds. No distension or tympany. No guarding or rebound. No evidence of tenderness throughout. Back: No spinal tenderness. No costovertebral tenderness. Skin: Warm, dry with normal turgor. Normal color with no rashes, no lesions, and no evidence of cellulitis. MS/ Extremity: Pulses equal, no cyanosis. Neurovascular intact. Full, normal range of motion. Neuro: Awake and alert, intoxication limits exam, grossly no lateralizing deficits alert and oriented to self and others. Cranial nerves II-XII grossly intact. Motor strength 5/5 in all extremities. Sensory grossly intact. 02:55 ECG was reviewed by the Attending Physician. EKG 020 0 sinus tachycardia rate 131, otherwise no ST elevation or depression, no signs of acute ischemia. Vital Signs: 01:58 BP 148 / 108; Pulse 122; Resp 18; Temp 98.4; Pulse Ox 98% ; Weight 91.63 kg; Height 6 cp4 ft. 2 in. ; Pain 0/10; 02:00 BP 148 / 113; Pulse 130; Resp 18; Pulse Ox 99% ; al5 02:30 BP 129 / 86; Pulse 98; Resp 15; Pulse Ox 97% ; al5 03:00 BP 125 / 79; Pulse 94; Resp 16; Pulse Ox 97% ; al5 03:30 BP 134 / 83; Pulse 90; Resp 16; Pulse Ox 98% ; al5 04:00 BP 111 / 76; Pulse 84; Resp 18; Pulse Ox 98% ; cp4 04:30 BP 111 / 75; Pulse 80; Resp 18; Pulse Ox 98% ; cp4 05:30 BP 114 / 75; Pulse 77; Resp 18; Pulse Ox 98% ; cp4 06:30 BP 128 / 78; Pulse 70; Resp 18; Pulse Ox 97% ; cp4 07:30 BP 121 / 88; Pulse 101; Resp 18; Pulse Ox 100% ; db 08:00 BP 124 / 88; Pulse 68; Resp 16; Pulse Ox 100% on R/A; db 01:58 Body Mass Index 25.93 (91.63 kg, 187.96 cm) 4 01:58 Pain Scale: Adult cp4 [place] Coma Score: 02:55 Eye Response: spontaneous(4). Motor Response: obeys commands(6). Verbal Response: sp4 confused(4). Total: 14. MDM: 00:55 Medical Screening Exam initiated sp4 02:58 Differential diagnosis: acute pericarditis, anxiety, chest wall pain, esophagitis, sp4 gastritis, Drug intoxication. HEART Score: History: Slightly Suspicious (0), ECG: Non specific repolarization disturbance / LBTB / PM (1), Age: < or = 45 years (0), Risk Factors: No Risk Factors Known (0), Troponin: < or = 1 x Normal Limit (0), Total Score = 1. Data reviewed: vital signs, nurses notes, EMS record, lab test result(s), EKG. Consideration of Admission/Observation Escalation of care including admission/observation considered. ED course: Patient was given Geodon and Ativan. Allowed to relax agitation has subsided.. 07:01 ED course: Patient woke up this morning and feels better. Patient stable for discharge sp4 home with recommendation to discontinue drug abuse. 11/08 00:54 Order name: Acetaminophen; Complete Time: 04:10 4 11/08 00:54 Order name: Basic Metabolic Panel; Complete Time: 04:10 [facility] 11/08 00:54 Order name: CBC with Diff; Complete Time: 04:10 4 11/08 00:54 Order name: ETOH Level; Complete Time: 04:10 [facility] 11/08 00:54 Order name: Hepatic Function; Complete Time: 04:10 4 11/08 00:54 Order name: PT-INR; Complete Time: 04:10 4 11/08 00:54 Order name: Ptt, Activated; Complete Time: 04:10 4 11/08 00:54 Order name: Salicylate; Complete Time: 04:10 [facility] 11/08 00:54 Order name: EKG; Complete Time: 00:55 4 11/08 00:54 Order name: EKG - Nurse/Tech; Complete Time: 02:03 4 11/08 00:54 Order name: IV Saline Lock; Complete Time: 02:12 [facility] 11/08 00:54 Order name: Labs collected and sent; Complete Time: 02:12 sp4 11/08 00:54 Order name: Suicide Screening (Clalie); Complete Time: 02:07 sp4 EC:00 Rate is 131 beats/min. Rhythm is regular, Sinus tachycardia. QRS [place] is Normal. SC sp4 interval is normal. QRS interval is normal. QT interval is normal. T waves are Normal. No ST changes noted. Clinical impression: No evidence of ischemia. Interpreted by me. Reviewed by me. Administered Medications: 02:06 Drug: LORazepam IM 2 mg IM once Route: IM; Site: right deltoid; cp4 04:18 Follow up: Response: No adverse reaction cp4 02:06 Drug: Geodon IM 20 mg IM once Route: IM; Site: left ventrogluteal; cp4 04:18 Follow up: Response: No adverse reaction cp4 02:21 Drug: NS 0.9% IV 1000 ml IV at 1000 ml once; to be given as a bolus over 60 minutes cp4 Route: IV; Rate: 1000 ml; Site: right antecubital; 04:18 Follow up: IV Status: Completed infusion cp4 02:21 Drug: NS 0.9% IV 1000 ml IV at 1000 ml once; to be given as a bolus over 60 minutes cp4 Route: IV; Rate: 1000 ml; Site: right antecubital; 04:18 Follow up: IV Status: Completed infusion cp4 04:18 Drug: Potassium Chloride IV 20 mEq IV at calculated rate once; administer over 1-2 cp4 hours Route: IV; Rate: calculated rate; Site: right antecubital; 08:47 Follow up: Response: No adverse reaction; IV Status: Completed infusion db Disposition Summary: 11/08/24 07:02 Discharge Ordered Notes: Location: Home sp4 Problem: new sp4 Symptoms: have improved sp4 Condition: Stable sp4 Diagnosis - Acute methamphetamine intoxication, synthetic cannabis intoxication, acute drug sp4 induced psychosis, acute paranoia associated with drug intoxication - Hypokalemia sp4 Followup: sp4 - With: Private Physician - When: As needed - Reason: Discharge Instructions: - Discharge Summary Sheet sp4 - Methamphetamines Use Disorder sp4 Signatures: Dispatcher [employer] Julián Storm MD MD sp4 Loren Hill cp4 Krystina Jack RN db Corrections: (The following items were deleted from the chart) 00:55 00:55 ACETAMINOPHEN+C.LAB.BRZ ordered. EDMS EDMS 00:55 00:55 BASIC METABOLIC PANEL+C.LAB.BRZ ordered. EDMS EDMS 00: 00:55 CBC+H.LAB.BRZ ordered. EDMS EDMS 00:55 00:55 ETHANOL+C.LAB.BRZ ordered. EDMS EDMS 00: 00:55 HEPATIC FUNCTION+C.LAB.BRZ ordered. EDMS EDMS 00: 00:55 PROTIME (+INR)+COAG.LAB.BRZ ordered. EDMS EDMS 00: 00:55 PTT, ACTIVATED+COAG.LAB.BRZ ordered. EDMS EDMS 00: 00:55 SALICYLATE+C.LAB.BRZ ordered. EDMS EDMS 00: 00:55 Urinalysis+U.LAB.BRZ ordered. EDMS EDMS 00:55 00:55 URINE DRUG SCREEN+UC.LAB.BRZ ordered. EDMS EDMS
[2024-11-08 12:23] VITALS: TEMP 98.4
--- NOTE | 2024-11-08 12:34 | EKG ---
Test Date: 2024-11-08 Test Time: 02:00:34 Clean Up Worker: AF MEASUREMENT RESULTS: Intervals: Rate: 131 WA: 156 QRSD: 88 QT: 294 QTc: 434 [place]: P: 68 WA: 156 QRS: -62 T: 70 INTERPRETIVE STATEMENTS: Sinus tachycardia Possible Left atrial enlargement Left anterior fascicular block Inferior infarct, age undetermined Anterolateral infarct, age undetermined Abnormal ECG Compared to ECG 04/11/2024 14:53:26 Left anterior fascicular block now present Myocardial infarct finding now present Sinus rhythm no longer present Electronically Signed On 11-08-24 12:33:19 CDT by Ken Velez
[2024-11-08 12:39] VITALS: O2SAT 100
[2024-11-08 12:40] VITALS: BP 124/88
== END 2024-11-08 08:48 | disposition home or self-care (01) ==
LOC: ER 00:51
DX: F19.959 Other psychoactive substance use, unspecified with psychoactive substance-induced psychotic disorder, unspecified (principal); F15.129 Other stimulant abuse with intoxication, unspecified; F12.929 Cannabis use, unspecified with intoxication, unspecified; F22 Delusional disorders
CPT/HCPCS: 36415; 80048; 80076; 80143; 80179; 82077; 85025; 85610; 85730; 93005; J3480; J3486; J7030